=== PATIENT | male | born 1960 | race Two or more races ===

== ENCOUNTER 2022-07-19 21:58 | Emergency (ER) | payer MEDICAID, OTHER ==
[~2022-07-19] VITALS: Ht 170.2 cm; Wt 72.7 kg
[2022-07-19] MEDS ORDERED: ACCU-CHEK COMFORT CURVE STRIP VI ONE (22:30)
[2022-07-19 23:02] LABS: Basophils # (auto) 0.1 10 ^3/uL (0-0.2); Basophils % (auto) 0.7 % (0.0-2.0); Eosinophils # (auto) 0.1 10 ^3/uL (0-0.8); Eosinophils % (auto) 1.6 % (0.0-7.0); Hematocrit 39.6 % (41.0-53.0); Hemoglobin 13.2 g/dL (13.5-17.5); Lymphocytes % (auto) 25.2 % (10.0-50.0); Mean Corpuscular Hemoglobin 30.2 pg (28.0-32.0); Mean Corpuscular Hgb Conc. 33.3 g/dL (32.0-36.0); Mean Corpuscular Volume 90.7 fL (80.0-100.0); Monocytes # (auto) 0.6 10 ^3/uL (0-1.3); Neutrophils # (auto) 5.2 10 ^3/uL (1.6-8.6); Neutrophils % (auto) 65.5 % (37.0-80.0); Nucleated Red Blood Cells % 0.1 %; Red Blood Cells 4.37 10^6/uL (4.5-5.90); Red Cell Distribution Width 14.8 % (11.8-14.3); White Blood Cell 7.9 10^3/uL (4.4-10.8)
[2022-07-19 23:10] LABS: Albumin 3.3 g/dL (3.4-5.0); BUN/Creatinine Ratio 11.1 (10.0-20.0); Calcium 8.3 mg/dL (8.5-10.1); Potassium 3.9 mmol/L (3.5-5.1); Salicylate < 1.7 mg/dL (2.8-20.0)
[2022-07-19 23:12] LABS: Acetaminophen < 2.0 ug/mL (10-30)
[2022-07-19 23:13] LABS: Bilirubin, Total 0.4 mg/dL (0.2-1.0); Total Protein 6.4 g/dL (6.4-8.2)
[2022-07-20 08:40] LABS: Urine Bacteria NONE SEEN /hpf (None Seen); Urine Blood 1+ /uL (Negative); Urine Specific Gravity 1.009 (1.001-1.035); Urine WBC <1 /hpf (0 - 3)
[2022-07-20 08:48] LABS: Amphetamine Screen, Urine NEGATIVE (NEGATIVE); Barbiturate Scree,Urine NEGATIVE (NEGATIVE); Benzodiazephine Screen, Urine NEGATIVE (NEGATIVE); Cocaine Screen, Urine NEGATIVE (NEGATIVE); Phencyclidine Screen, Urine NEGATIVE (NEGATIVE)
[2022-07-20 08:55] LABS: Cannabinoid Screen, Urine POSITIVE (NEGATIVE); Opiate Scree,Urine NEGATIVE (NEGATIVE)
[2022-07-20 12:45] VITALS: BP 119/87
== END 2022-07-20 14:14 | disposition home or self-care (01) ==
LOC: EDBD 21:58 → ER 21:58
DX: T65.92XA Toxic effect of unspecified substance, intentional self-harm, initial encounter (principal); F41.9 Anxiety disorder, unspecified; D64.9 Anemia, unspecified; R42 Dizziness and giddiness; Y92.89 Other specified places as the place of occurrence of the external cause
CPT/HCPCS: 36415; 80053; 80307; 80320; 80329; 81001; 85025; 93005

== ENCOUNTER 2022-08-18 15:57 | Emergency (ER) | payer MEDICAID, OTHER ==
[~2022-08-18] VITALS: Ht 162.6 cm; Wt 55.5 kg
[2022-08-18 16:04] VITALS: BP 104/72
[2022-08-18] MEDS ORDERED: NAP500T PO (16:58)
[2022-08-18] MEDS ORDERED: KETOROLAC TROMETH 60MG/2ML VIAL IM ONE (17:00)
[2022-08-18] MEDS ORDERED: DexAMETHasone SOD PHOS 10MG/1ML VIAL INJ IM ONE (17:00)
== END 2022-08-19 00:50 | disposition home or self-care (01) ==
LOC: ER 15:57
DX: M19.021 Primary osteoarthritis, right elbow (principal); M25.521 Pain in right elbow; M54.2 Cervicalgia
CPT/HCPCS: 73080

== ENCOUNTER 2023-01-26 13:30 | Inpatient (IN) | payer MEDICAID, OTHER ==
[~2023-01-26] VITALS: Ht 172.7 cm; Wt 72.7 kg
[~2023-01-26 13:30] MED LIST: NAP500T PO
[2023-01-26 14:49] LABS: Basophils # (auto) 0.1 10 ^3/uL (0-0.2); Eosinophils # (auto) 0.1 10 ^3/uL (0-0.8); Eosinophils % (auto) 0.9 % (0.0-7.0); Hematocrit 39.5 % (41.0-53.0); Hemoglobin 13.3 g/dL (13.5-17.5); Lymphocytes # (auto) 1.3 10 ^3/uL (0.4-5.4); Lymphocytes % (auto) 18.3 % (10.0-50.0); Mean Corpuscular Hemoglobin 30.2 pg (28.0-32.0); Mean Corpuscular Hgb Conc. 33.8 g/dL (32.0-36.0); Mean Corpuscular Volume 89.4 fL (80.0-100.0); Monocytes # (auto) 0.5 10 ^3/uL (0-1.3); Monocytes % (auto) 7.7 % (0.0-12.0); Neutrophils % (auto) 72.1 % (37.0-80.0); Red Blood Cells 4.42 10^6/uL (4.5-5.90); Red Cell Distribution Width 14.2 % (11.8-14.3)
[2023-01-26 15:17] LABS: Alanine Aminotransferase 33 U/L (7-40); Albumin 4.2 g/dL (3.2-4.8); Alkaline Phosphatase 67 U/L (46-116); Anion Gap 6 (5-15); Aspartate Aminotransferase 24 U/L (13-40); BUN/Creatinine Ratio 8.1 (10.0-20.0); Bilirubin, Total 0.4 mg/dL (0.2-1.0); Blood Urea Nitrogen 9 mg/dL (9-23); Carbon Dioxide 27 mmol/L (20-30); Chloride 106 mmol/L (98-107); Glucose 92 mg/dL (74-106); Potassium 3.8 mmol/L (3.5-5.1); Sodium 139 mmol/L (136-145); Total Protein 6.7 g/dL (5.7-8.2)
[2023-01-26] MEDS ORDERED: HYDROcodone-ACET 10/325MG TAB PO ONE (20:30)
[2023-01-26] MEDS ORDERED: ACETAMINOPHEN 325 MG TAB PO PRN (22:30)
[2023-01-26] MEDS ORDERED: DOCUSATE SOD 100 MG CAP PO PRN (22:30)
[2023-01-26] MEDS ORDERED: ONDANSETRON HCL 4 MG/2 ML VIAL IV PRN (22:30)
[2023-01-26] MEDS ORDERED: SODIUM CHLORIDE 0.9% 1,000 ML IV SCH (22:30)
[2023-01-27] VITALS (8 sets, daily range): BP systolic 105–138; BP diastolic 65–75; PULSE 52–77; RESP 16–18; TEMP 36.8; O2SAT 95–99
[2023-01-27] MEDS ORDERED: MORPHINE SULFATE INJ 2 MG/ml SYRG IV PRN (00:15)
[2023-01-27] MEDS ORDERED: NITROGLYCERIN 0.4 MG SL TAB SL PRN (00:15)
[2023-01-27] MEDS: HYDROcodone-ACET 10/325MG TAB PO ONE ×2 (01:27→02:13)
[2023-01-27 07:17] LABS: Basophils # (auto) 0.1 10 ^3/uL (0-0.2); Basophils % (auto) 0.9 % (0.0-2.0); Eosinophils # (auto) 0.1 10 ^3/uL (0-0.8); Hematocrit 40.9 % (41.0-53.0); Hemoglobin 13.7 g/dL (13.5-17.5); Lymphocytes # (auto) 2.1 10 ^3/uL (0.4-5.4); Mean Corpuscular Hgb Conc. 33.5 g/dL (32.0-36.0); Mean Corpuscular Volume 89.7 fL (80.0-100.0); Monocytes # (auto) 0.7 10 ^3/uL (0-1.3); Monocytes % (auto) 8.3 % (0.0-12.0); Neutrophils # (auto) 5.7 10 ^3/uL (1.6-8.6); Neutrophils % (auto) 65.8 % (37.0-80.0); Nucleated Red Blood Cells % 0.2 %; Red Blood Cells 4.56 10^6/uL (4.5-5.90); Red Cell Distribution Width 14.3 % (11.8-14.3); White Blood Cell 8.7 10^3/uL (4.4-10.8)
[2023-01-27 07:39] LABS: Alanine Aminotransferase 30 U/L (7-40); Albumin 4.5 g/dL (3.2-4.8); Alkaline Phosphatase 65 U/L (46-116); Anion Gap 7 (5-15); Aspartate Aminotransferase 27 U/L (13-40); BUN/Creatinine Ratio 5.9 (10.0-20.0); Bilirubin, Total 0.6 mg/dL (0.2-1.0); Blood Urea Nitrogen 7 mg/dL (9-23); Calcium 9.2 mg/dL (8.5-10.1); Carbon Dioxide 25 mmol/L (20-30); Chloride 106 mmol/L (98-107); Glucose 99 mg/dL (74-106); Potassium 4.2 mmol/L (3.5-5.1); Sodium 138 mmol/L (136-145); Total Protein 7.2 g/dL (5.7-8.2)
[2023-01-27] MEDS: ASPirin 81 mg TAB PO SCH (10:18)
[2023-01-27] MEDS: HYDROcodone-ACET 5/325MG TAB PO PRN ×2 (15:11→19:35)
[2023-01-28] VITALS (7 sets, daily range): BP systolic 103–148; BP diastolic 66–99; PULSE 55–73; RESP 17–20; TEMP 97.4–99.4; O2SAT 95–100
[2023-01-28] MEDS: HYDROcodone-ACET 5/325MG TAB PO PRN ×4 (01:51→21:54)
[2023-01-28] MEDS: ASPirin 81 mg TAB PO SCH (08:19)
[2023-01-29 05:00] VITALS: BP 108/74; PULSE 67; RESP 18; TEMP 97.7; O2SAT 100
[2023-01-29] MEDS ORDERED: BACL10TA PO (05:48)
[2023-01-29] MEDS ORDERED: BRIN1SUS7 EACHEYE (05:48)
[2023-01-29] MEDS ORDERED: TIMO0.5S32 EACHEYE (05:48)
[2023-01-29] MEDS ORDERED: LATA0.008 EACHEYE (05:48)
[2023-01-29] MEDS ORDERED: BRIM0.2S17 EACHEYE (05:48)
[2023-01-29] MEDS ORDERED: CITA10TA5 PO (05:48)
[2023-01-29] MEDS ORDERED: FER325T PO (05:48)
[2023-01-29] MEDS ORDERED: IBUP1TAB5 PO (05:48)
[2023-01-29] MEDS ORDERED: HYDR-4798 PO (05:49)
[2023-01-29 08:00] VITALS: PULSE 77
[2023-01-29] MEDS: ASPirin 81 mg TAB PO SCH (08:35)
[2023-01-29] MEDS: HYDROcodone-ACET 5/325MG TAB PO PRN (08:36)
[2023-01-29 09:00] VITALS: BP 105/72; PULSE 76; RESP 17; TEMP 97.9; O2SAT 97
[2023-01-29] MEDS ORDERED: TIMOLOL MAL 0.5% OPTH(EYE) SOL 5ML EACHEYE SCH (10:00)
[2023-01-29] MEDS ORDERED: BRIMONIDINE 0.2% OPTH Soln 5ml EACHEYE SCH (10:00)
[2023-01-29] MEDS ORDERED: LATANOPROST EACHEYE SCH (10:00)
[2023-01-29] MEDS ORDERED: PATIENTS OWN MEDICATION EACHEYE SCH (10:00)
== END 2023-01-29 14:53 | disposition home or self-care (01) | DRG 48 ==
LOC: EDBD 13:30 → ER 13:30 → TELE 01-27 00:15 → TELE-WESTW 01-27 08:07
PROVIDERS: ADMIT Nurse Practitioner Family; ATTEND Internal Medicine Geriatric Medicine
DX: G90.8 Other disorders of autonomic nervous system (principal); S09.90XA Unspecified injury of head, initial encounter; F12.90 Cannabis use, unspecified, uncomplicated; F17.210 Nicotine dependence, cigarettes, uncomplicated; G89.29 Other chronic pain; M54.9 Dorsalgia, unspecified; W17.89XA Other fall from one level to another, initial encounter; Y93.89 Activity, other specified; Y92.521 Bus station as the place of occurrence of the external cause; Y99.8 Other external cause status
CPT/HCPCS: 36415; 70450; 70551; 71101; 71260; 72125; 74177; 80053; 84484; 85025; 93005; 93306; 93886; G0378

== ENCOUNTER 2024-06-23 09:09 | Emergency (ER) | payer MEDICAID, OTHER ==
[~2024-06-23] VITALS: Ht 162.6 cm; Wt 50.5 kg
[~2024-06-23 09:09] MED LIST changes: +ASPI-325 PO; +BACL10TA PO; +BRIM0.2S17 EACHEYE; +BRIN1SUS7 EACHEYE; +CITA10TA5 PO; +FAMO20TA10 PO; +FER325T PO; +FLUO-125 PO; +HYDR-4798 PO; +IBUP1TAB5 PO; +LATA0.008 EACHEYE; -NAP500T PO; +QUET50TA PO; +TIMO0.5S32 EACHEYE
--- NOTE | 2024-06-23 10:07 | ED.PDOC ---
History of Present Illness HPI Comments 63 year old male presents to the ED with a chief complaint of generalized weakness onset 2 days. Patient states he has been experiencing generalized weakness the past 2 days as well as dizziness, abdominal pain, sweats. Patient has not taken any medication to improve symptoms. PMHx seizures. Denies chest pain, shortness of breath, fevers, nausea, vomiting, diarrhea, constipation, fall, injury. No other symptoms or modifying factors present at this time. Chief Complaint: Flu like Time Seen by MD: 09:46 Primary Care Provider: JAIME Mendiola Notes: Medications, Allergies Allergies: Coded Allergies: NO KNOWN ALLERGIES (Unverified , 07/19/22) Home Meds Active Scripts Aspirin (Aspirin Low Dose) 81 Mg Tab, 81 MG PO DAILY for 30 Days, #30 TAB Prov:KELLEE CHACON RESIDENT 12/17/23 Reported Medications Quetiapine Fumerate (Seroquel) 50 Mg Tab, 1 TAB PO HS for 30 Days, #30 12/17/23 Fluoxetine Hcl (Fluoxetine Hcl) 20 Mg Cap, 1 TAB PO DAILY for 30 Days, #30 12/17/23 Famotidine (PEPCID TABLET) 20 Mg Tb, 1 TAB PO BID for 30 Days, #60 12/17/23 Hydrocodone-Acetaminophen (Hydrocodone Bitartrate/AC 10-325 mg) 1 Tab Tab, 1 TAB PO TID for 30 Days, #90 01/29/23 Citalopram Hydrobromide (Citalopram Hydrobromide) 10 Mg Tab, 1 TAB PO DAILY 01/29/23 Timolol Maleate (Ophth) (Timolol Maleate) 0.5 % Nora, EACHEYE 01/29/23 Brimonidine Tartrate (Brimonidine Tartrate) 0.2 % Nora, 1 DROP EACHEYE TID for 90 Days, #30 01/29/23 Latanoprost (LATANOPROST) 0.005 % Nora, 1 DROP EACHEYE HS for 90 Days, #7.5 01/29/23 Brinzolamide-Brimonidine Tartr (SIMBRINZA) 1 Ml Vielka, 1 DROP EACHEYE TID 01/29/23 Ibuprofen Micronized (Ibuprofen) 600 Mg Tab, 2 TAB PO BID 01/29/23 Baclofen (Baclofen) 10 Mg Tab, 1 TAB PO TID 01/29/23 Ferrous Sulfate (Ferrous Sulfate) 325 Mg Tab, 1 TAB PO BID 01/29/23 Information Source: Patient Mode of Arrival: Ambulatory Severity: Moderate Timing: Days Duration: Since onset Prehospital treatment: None Past Medical History PAST MEDICAL HISTORY: Seizures Surgical History: Hernia Repair Family History Family History: Unknown Social History Smoker: Cigarettes Alcohol: Occasionally Drugs: Marijuana Lives In: Home Constitutional: reports: sweats, weakness; denies: chills, diaphoresis, fatigue, fever, malaise, others EENTM: denies: blurred vision, double vision, ear bleeding, ear discharge, ear drainage, ear pain, ear ringing, eye pain, eye redness, hearing loss, mouth pain, mouth swelling, nasal discharge, nose bleeding, nose congestion, nose pain, photophobia, tearing, throat pain, throat swelling, voice changes, others Respiratory: denies: cough, hemoptysis, orthopnea, SOB at rest, shortness of breath, SOB with excertion, stridor, wheezing, others Cardiovascular: denies: chest pain, dizzy spells, diaphoresis, Dyspnea on exertion, edema, irregular heart beat, left arm pain, lightheadedness, palpitations, PND, syncope, others Gastrointestinal: reports: abdominal pain; denies: abdomen distended, blood streaked bowels, constipated, diarrhea, dysphagia, difficulty swallowing, h ematemesis, melena, nausea, poor appetite, poor fluid intake, rectal bleeding, rectal pain, vomiting, others Genitourinary: denies: burning, dysuria, flank pain, frequency, hematuria, incontinence, penile discharge, penile sore, pain, testicle pain, testicle swelling, urgency, others Neurological: reports: dizziness, weakness; denies: fainting, headache, left sided numbness, left sided weakness, numbness, paresthesia, pre-existing deficit, right sided numbness, right sided weakness, seizure, speech problems, tingling, tremors, others Musculoskeletal: denies: back pain, gout, joint pain, joint swelling, muscle pain, muscle stiffness, neck pain, others Integumetry: denies: bruises, change in color, change in hair/nails, dryness, laceration, lesions, lumps, rash, wounds, others Allergic/Immunocompromised: denies: Difficulty Healing, Frequent Infections, Hives, Itching, others Hematologic/Lymphatic: denies: anemia, blood clots, easy bleeding, easy bruising, swollen glands, others Endocrine: denies: excessive hunger, excessive sweating, excessive thirst, excessive urination, flushing, intolerance to cold, intolerance to heat, unexplained weight gain, unexplained weight loss, others Psychiatric: denies: anxiety, bipolar disorder, depression, hopeless, panic disorder, schizophrenia, sleepless, suicidal, others All Other Systems: Reviewed and Negative Physical Exam General Appearance: Moderate Distress, Normal HEENT: Normal ENT Inspection, Pharynx Normal, TMs Normal Neck: Full Range of Motion, Non-Tender, Normal, Normal Inspection Respiratory: Chest Non-Tender, Lungs Clear, No Accessory Muscle Use, No Respiratory Distress, Normal Breath Sounds Cardiovascular: No Edema, No JVD, No Murmur, No Gallop, Normal Peripheral Pulses, Regular Rate/Rhythm Breast Exam: Deferred Gastrointestinal: No Organomegaly, Non Tender, No Pulsatile Mass, Normal Bowel Sounds, Soft Genitalia: Deferred Pelvic: Deferred Rectal: Deferred Extremities: No calf tenderness, Normal capillary refill, Normal inspection, Normal range of motion, Non-tender, No pedal edema Musculoskeletal : Apperance: Normal Neurologic: Alert, lead atg developer II-XII nml as Tested, No Motor Deficits, Normal Affect, Normal Mood, No Sensory Deficits Cerebellar Function: Normal Reflexes: Normal Skin: Dry, Normal Color, Warm Peripheral Pulses: 3+ Radial (R), 3+ Radial (L) Lymphatic: No Adenopathy Was a procedure done? Was a procedure done?: No Differential Dx Considerations may include: Anemia Electrolyte imbalance X-Ray, Labs, Meds, VS Vital Signs Date Time Temp Pulse Resp B/P (MAP) Pulse Ox O2 Delivery O2 Flow Rate FiO2 06/23/24 10:27 53 96 Room Air* 0 21 06/23/24 10:22 98.4 53 19 124/70 (88) 96 98.4 06/23/24 10:21 98.8 52 19 124/70 (88) 96 98.8 06/23/24 09:44 97.9 59 18 107/76 (86) 96 97.9 06/23/24 09:44 59 18 96 Room Air 06/23/24 09:42 Room Air* 0 21 3/24/25 09:15 98.5 69 18 137/86 (103) 100 98.5 Lab Test 06/23/24 10:10 Range/Units White Blood Count 4.7 4.4-10.8 10^3/uL Red Blood Count 4.74 4.5-5.90 10^6/uL Hemoglobin 14.4 13.5-17.5 g/dL Hematocrit 42.7 41.0-53.0 % Mean Corpuscular Volume 90.2 80.0-100.0 fL Mean Corpuscular Hemoglobin 30.3 28.0-32.0 pg Mean Corpuscular Hemoglobin Concent 33.6 32.0-36.0 g/dL Red Cell Distribution Width 14.0 11.8-14.3 % Platelet Count 170 140-450 10^3/uL Mean Platelet Volume 9.2 6.9-10.8 fL Neutrophils (%) (Auto) 54.4 37.0-80.0 % Lymphocytes (%) (Auto) 30.1 10.0-50.0 % Monocytes (%) (Auto) 13.9 H 0.0-12.0 % Eosinophils (%) (Auto) 0.3 0.0-7.0 % Basophils (%) (Auto) 1.3 0.0-2.0 % Neutrophils # (Auto) 2.6 1.6-8.6 10 ^3/uL Lymphocytes # (Auto) 1.4 0.4-5.4 10 ^3/uL Monocytes # (Auto) 0.7 0-1.3 10 ^3/uL Eosinophils # (Auto) 0 0-0.8 10 ^3/uL Basophils # (Auto) 0.1 0-0.2 10 ^3/uL Nucleated Red Blood Cells 0.2 % Sodium Level 137 136-145 mmol/L Potassium Level 4.1 3.5-5.1 mmol/L Chloride Level 105 98-107 mmol/L Carbon Dioxide Level 25 20-31 mmol/L Anion Gap 7 5-15 Blood Urea Nitrogen 9 9-23 mg/dL Creatinine 1.08 0.700-1.30 mg/dL Glomerular Filtration Rate Calc 78 >90 mL/min BUN/Creatinine Ratio 8.3 L 10.0-20.0 Serum Glucose 111 H 74-106 mg/dL Calcium Level 9.3 8.7-10.4 mg/dL Current Medications Medications (Trade) Dose Ordered Sig/Kami Route Start Time Stop Time Status Last Admin Sodium Chloride 1,000 ml @ 1,000 mls/hr Q1H ONCE IV 06/23/24 10:00 06/23/24 10:59 DC 06/23/24 10:[address] [address] Ph: [phone] DIAGNOSTIC IMAGING Diagnostic Imaging Report : [id number] Signed PATIENT: CAROL HANKINS RACCT: [id number] UNIT: [id number] : 1960 LOC: ER ROOM / BED: / AGE / SEX: 63 / M ADM STATUS: REG ER SERVICE 0949 ORDERING PHYSICIAN: KEREN WILEY MD PROCEDURE(s): CXRP - CHEST PORTABLE REASON: sob ORDER NUMBER(s): [id number], ACCESSION NUMBER(s): [id number] CHEST RADIOGRAPH Indication: sob Technique: Single frontal view of the chest was obtained Comparison: None FINDINGS: Lines and Tubes: None Lungs: No focal consolidation. Pleura: No effusion. No pneumothorax. Cardiomediastinal contours: Unremarkable Bones: No acute osseous abnormality. IMPRESSION: 1. No acute cardiopulmonary disease. ATED BY: KAREN VELOZ MD DICTATED DATE/TIME: 06/23/24 1009 SIGNED BY: KAREN VELOZ MD SIGNED DATE/TIME: 06/23/24 1009 CC: Patient alert. Complaining of being feverish. Vitals stable. Answering all questions. Chest x-ray reviewed does not show any acute process. Abdomen is soft nontender. No sign of distress. Possible upper respiratory tract infection. Possible sinusitis. Hemoglobin within normal limits. Saturation pristine on room air. Heart rate within normal limits. No leg swelling. Denies chest pain. Was given prescription of Augmentin for sinusitis. Explained to the patient. Was told to follow up with his primary care physician. Was told to come back if there is any problem. Time of 1ST Reevaluation: 10:16 Reevaluation 1ST: Improved Time of 2ND Reevaluation: 11:43 Reevaluation 2ND: Improved Patient Education/Counseling: Diagnosis, Treatment, Prognosis Family Education/Counseling: No Family Present Additional Information The following tests were ordered, and results were reviewed by me: CBC, XY CHEST, BMP I reviewed and agreed with the following test results read by other providers: XY CHEST I discussed treatment and results with medical personnel and: patient Comprehensive systems review obtained and negative except for what is stated in the HPI. Departure 1 Departure Time of Disposition: 11:45 Impression: Primary Impression: Sinusitis Qualified Codes: J01.10 - Acute frontal sinusitis, unspecified Disposition: HOME / SELF CARE / HOMELESS Condition: Good e-Prescriptions Amoxicillin & Pot Clavulanate (Augmentin) 500 Mg Tab 1 TAB PO BID for 7 Days, #14 TAB Prov: KEREN WILEY MD 06/23/24 Discharged With: Self Critical Care Note Critical Care Time?: No Stability Stability form required: No Heart Score Heart Score: Heart Score Response (Comments) Value History N/A 0 EKG N/A 0 Age N/A 0 Risk Factors N/A 0 Troponin N/A 0 Total 0 I personally scribed for KEREN WILEY MD ([email or web address]) on 06/23/24 at 10:07. Electronically submitted by Roxanna Flores ([email or web address]). I personally scribed for KEREN WILEY MD ([email or web address]) on 06/23/24 at 10:41. Electronically submitted by Roxanna Flores ([email or web address]). KEREN WILEY MD Jun 23, 2024 10:07
--- NOTE | 2024-06-23 10:12 | DVH ---
CHEST RADIOGRAPH Indication: sob Technique: Single frontal view of the chest was obtained Comparison: None FINDINGS: Lines and Tubes: None Lungs: No focal consolidation. Pleura: No effusion. No pneumothorax. Cardiomediastinal contours: Unremarkable Bones: No acute osseous abnormality. IMPRESSION: 1. No acute cardiopulmonary disease.
[2024-06-23 10:22] VITALS: BP 124/70; RESP 19; TEMP 98.4
[2024-06-23 10:27] VITALS: PULSE 53; O2SAT 96
[2024-06-23 10:30] LABS: Basophils # (auto) 0.1 10 ^3/uL (0-0.2); Basophils % (auto) 1.3 % (0.0-2.0); Eosinophils # (auto) 0 10 ^3/uL (0-0.8); Eosinophils % (auto) 0.3 % (0.0-7.0); Hematocrit 42.7 % (41.0-53.0); Hemoglobin 14.4 g/dL (13.5-17.5); Lymphocytes # (auto) 1.4 10 ^3/uL (0.4-5.4); Lymphocytes % (auto) 30.1 % (10.0-50.0); Mean Corpuscular Hemoglobin 30.3 pg (28.0-32.0); Mean Corpuscular Hgb Conc. 33.6 g/dL (32.0-36.0); Mean Corpuscular Volume 90.2 fL (80.0-100.0); Monocytes # (auto) 0.7 10 ^3/uL (0-1.3); Monocytes % (auto) 13.9 % (0.0-12.0); Neutrophils # (auto) 2.6 10 ^3/uL (1.6-8.6); Neutrophils % (auto) 54.4 % (37.0-80.0); Nucleated Red Blood Cells % 0.2 %; Platelet Count (auto) 170 10^3/uL (140-450); Red Blood Cells 4.74 10^6/uL (4.5-5.90); White Blood Cell 4.7 10^3/uL (4.4-10.8)
[2024-06-23] MEDS: SODIUM CHLORIDE 0.9% 1,000 ML IV ONE (10:30)
[2024-06-23 10:43] LABS: Chloride 105 mmol/L (98-107); Potassium 4.1 mmol/L (3.5-5.1); Sodium 137 mmol/L (136-145)
[2024-06-23 10:44] LABS: Anion Gap 7 (5-15); Calcium 9.3 mg/dL (8.7-10.4); Carbon Dioxide 25 mmol/L (20-31)
[2024-06-23 10:49] LABS: BUN/Creatinine Ratio 8.3 (10.0-20.0); Blood Urea Nitrogen 9 mg/dL (9-23)
[2024-06-23 10:58] LABS: Glucose 111 mg/dL (74-106)
[2024-06-23] MEDS ORDERED: AMOX500T86 PO (11:46)
== END 2024-06-23 11:57 | disposition home or self-care (01) ==
LOC: ER 09:09
DX: J32.9 Chronic sinusitis, unspecified (principal); R10.9 Unspecified abdominal pain; R42 Dizziness and giddiness; F17.210 Nicotine dependence, cigarettes, uncomplicated; Z79.82 Long term (current) use of aspirin; Z79.899 Other long term (current) drug therapy; Z98.890 Other specified postprocedural states
CPT/HCPCS: 36415; 71045; 80048; 85025; 96360; 99284; J7030

== ENCOUNTER 2024-07-26 09:40 | Emergency (ER) | payer OTHER ==
[~2024-07-26] VITALS: Ht 162.6 cm; Wt 49.5 kg
[~2024-07-26 09:40] MED LIST changes: +AMOX500T86 PO
[2024-07-26 10:03] VITALS: BP 157/77; PULSE 89; RESP 17; TEMP 98.6; O2SAT 98
--- NOTE | 2024-07-26 10:27 | ED.PDOC ---
Musculoskeletal HPI Comments A 63 YEAR OLD FEMALE PRESENTS TO THE ED WITH COMPLAINT OF RIGHT FOOT PAIN. PATIENT STATES HE HAS BEEN EXPERIENCING RIGHT FOOT PAIN OFF AND ON FOR THE PAST SEVERAL YEARS DUE TO A PREVIOUS INJURY TO THE AREA, BUT NOTES HIS PAIN HAS BEEN WORSE OVER THE LAST 3 MONTHS. HE TAKES NORCO PAIN MEDICATION AT HOME BUT HE RAN OUT OF MESI. PATIENT DENIES FEVER, CHILLS, SHORTNESS OF BREATH, CHEST PAIN, ABDOMINAL PAIN, NAUSEA, VOMITING, HEADACHE, OR OTHER COMPLAINTS. NO OTHER SYMPTOMS OR MODIFYING FACTORS AT THIS TIME. PATIENT IS ALERT, ORIENTED X 4, AND HAS STEADY GAIT. Chief Complaint: Lower Extremity Time Seen by MD: 09:44 Primary Care Provider: JAIME Mendiola Notes: Nurses Notes, Medications, Allergies Allergies: Coded Allergies: NO KNOWN ALLERGIES (Unverified , 07/19/22) Home Meds Active Scripts Amoxicillin & Pot Clavulanate (Augmentin) 500 Mg Tab, 1 TAB PO BID for 7 Days, #14 TAB Prov:KEREN WILEY MD 06/23/24 Aspirin (Aspirin Low Dose) 81 Mg Tab, 81 MG PO DAILY for 30 Days, #30 TAB Prov:KELLEE CHACON RESIDENT 12/17/23 Reported Medications Quetiapine Fumerate (Seroquel) 50 Mg Tab, 1 TAB PO HS for 30 Days, #30 12/17/23 Fluoxetine Hcl (Fluoxetine Hcl) 20 Mg Cap, 1 TAB PO DAILY for 30 Days, #30 12/17/23 Famotidine (PEPCID TABLET) 20 Mg Tb, 1 TAB PO BID for 30 Days, #60 12/17/23 Hydrocodone-Acetaminophen (Hydrocodone Bitartrate/AC 10-325 mg) 1 Tab Tab, 1 TAB PO TID for 30 Days, #90 01/29/23 Citalopram Hydrobromide (Citalopram Hydrobromide) 10 Mg Tab, 1 TAB PO DAILY 01/29/23 Timolol Maleate (Ophth) (Timolol Maleate) 0.5 % Nora, EACHEYE 01/29/23 Brimonidine Tartrate (Brimonidine Tartrate) 0.2 % Nora, 1 DROP EACHEYE TID for 90 Days, #30 01/29/23 Latanoprost (LATANOPROST) 0.005 % Nora, 1 DROP EACHEYE HS for 90 Days, #7.5 01/29/23 Brinzolamide-Brimonidine Tartr (SIMBRINZA) 1 Ml Vielka, 1 DROP EACHEYE TID 01/29/23 Ibuprofen Micronized (Ibuprofen) 600 Mg Tab, 2 TAB PO BID 01/29/23 Baclofen (Baclofen) 10 Mg Tab, 1 TAB PO TID 01/29/23 Ferrous Sulfate (Ferrous Sulfate) 325 Mg Tab, 1 TAB PO BID 01/29/23 Information Source: Patient Mode of Arrival: Ambulatory Location: Right Extremity Location: Foot Timing: Days Prehospital treatment: None Severity: Moderate Able to Move Extremity: Yes Bear Weight: Fully Pain: Moderate Mechanism: No Trauma, Spontaneous Circumstances: Spontaneous Onset of Symptoms: Spontaneous Symptoms: Pain DVT Risk Factors: NONE Last Tetanus: Unknown Associated signs and symptoms: Foot pain (RIGHT 2ND TOE ) Past Medical History PAST MEDICAL HISTORY: Seizures Surgical History: Hernia Repair Family History Family History: Reviewed,noncontributory to illness Social History Smoker: Cigarettes Alcohol: Occasionally Drugs: Marijuana Lives In: Home Constitutional: denies: chills, diaphoresis, fatigue, fever, malaise, sweats, weakness, others EENTM: denies: blurred vision, double vision, ear bleeding, ear discharge, ear drainage, ear pain, ear ringing, eye pain, eye redness, hearing loss, mouth pain, mouth swelling, nasal discharge, nose bleeding, nose congestion, nose pain, photophobia, tearing, throat pain, throat swelling, voice changes, others Respiratory: denies: cough, hemoptysis, orthopnea, SOB at rest, shortness of breath, SOB with excertion, stridor, wheezing, others Cardiovascular: denies: chest pain, dizzy spells, diaphoresis, Dyspnea on exertion, edema, irregular heart beat, left arm pain, lightheadedness, palpitations, PND, syncope, others Gastrointestinal: denies: abdomen distended, abdominal pain, blood streaked bowels, constipated, diarrhea, dysphagia, difficulty swallowing, hematemesis, melena, nausea, poor appetite, poor fluid intake, rectal bleeding, rectal pain, vomiting, others Genitourinary: denies: burning, dysuria, flank pain, frequency, hematuria, incontinence, penile discharge, penile sore, pain, testicle pain, testicle swelling, urgency, others Neurological: denies: dizziness, fainting, headache, left sided numbness, left sided weakness, numbness, paresthesia, pre-existing deficit, right sided numbness, right sided weakness, seizure, speech problems, tingling, tremors, weakness, others Musculoskeletal: reports: joint pain, others (RIGHT FOOT PAIN); denies: back pain, gout, joint swelling, muscle pain, muscle stiffness, neck pain Integumetry: denies: bruises, change in color, change in hair/nails, dryness, laceration, lesions, lumps, rash, wounds, others Allergic/Immunocompromised: denies: Difficulty Healing, Frequent Infections, Hives, Itching, others Hematologic/Lymphatic: denies: anemia, blood clots, easy bleeding, easy bruising, swollen glands, others Endocrine: denies: excessive hunger, excessive sweating, excessive thirst, excessive urination, flushing, intolerance to cold, intolerance to heat, unexplained weight gain, unexplained weight loss, others Psychiatric: denies: anxiety, bipolar disorder, depression, hopeless, panic disorder, schizophrenia, sleepless, suicidal, others All Other Systems: Reviewed and Negative Physical Exam General Appearance: No Apparent Distress, Normal HEENT: Normal ENT Inspection, PERRL/EOMI, Pharynx Normal, TMs Normal Neck: Full Range of Motion, Non-Tender, Normal, Normal Inspection Respiratory: Chest Non-Tender, Lungs Clear, No Accessory Muscle Use, No Respiratory Distress, Normal Breath Sounds Cardiovascular: No Edema, No JVD, No Murmur, No Gallop, Normal Peripheral Pulses, Regular Rate/Rhythm Breast Exam: Deferred Gastrointestinal: No Organomegaly, Non Tender, No Pulsatile Mass, Normal Bowel Sounds, Soft Genitalia: Deferred Pelvic: Deferred Rectal: Deferred Extremities: No calf tenderness, Normal capillary refill, Normal inspection, Normal range of motion, No pedal edema, Tender (ON RIGHT 2ND TOE, NO BONY TENDERNESS, SWELLING AND DEFORMITY. ) Musculoskeletal : Apperance: Normal Neurologic: Alert, clinical resource coordinator II-XII nml as Tested, No Motor Deficits, Normal Affect, Normal Mood, No Sensory Deficits Cerebellar Function: Normal Reflexes: Normal Skin: Dry, Normal Color, Warm Peripheral Pulses: 2+ carotid (R), 2+ carotid (L), 2+ dorsalis pedis (R), 2+ dorsalis pedis (L) Lymphatic: No Adenopathy Was a procedure done? Was a procedure done?: No Differential Diagnosis EXT Differential Diagnosis: Fracture, Sprain, Dislocation, DJD, Contusion, Strain, Arthritis, Bursitis X-Ray, Labs, Meds, VS Vital Signs Date Time Temp Pulse Resp B/P (MAP) Pulse Ox O2 Delivery O2 Flow Rate FiO2 07/26/24 10:03 98.6 89 18 157/77 (103) 98 98.6 07/26/24 10:03 89 17 98 Room Air 07/26/24 09:48 98.0 94 18 164/79 (107) 98 98.0 Current Medications Medications (Trade) Dose Ordered Sig/Kami Route Start Time Stop Time Status Last Admin Acetaminophen/ Hydrocodone Bitart ([place] 5/325MG Tab) 1 tab ONCE ONCE PO 07/26/24 10:45 07/26/24 10:46 07/26/24 10:45 CLINICAL INFORMATION: Right foot pain for years. No known injury. TECHNIQUE: 3 views of the right foot were obtained. COMPARISON: None. FINDINGS: No acute fracture or dislocation. Hallux valgus deformity. Moderate arthritic changes of the 1st MTP joint with joint space narrowing and subchondral sclerosis. Mild lateral subluxation of the proximal phalanx of the 1st digit with respect to the 1st metatarsal base. Mild bunionette deformity of the 5th metatarsal with mild varus angulation of the 5th MTP joint. Adjacent sof t tissues are unremarkable. IMPRESSION: 1. No evidence of acute bony abnormality. 2. Nonacute findings as described above. ATED BY: AARON GANN DO DICTATED DATE/TIME: 07/26/24 1037 SIGNED BY: AARON GANN DO SIGNED DATE/TIME: 07/26/24 1037 CC: X-Ray, Labs, Meds, VS Comment EXTERNAL MEDICAL RECORDS REVIEWED: [NONE] INDEPENDENT HISTORIANS: [NONE] SOCIAL DETERMINANTS OF HEALTH: [NONE] LABS ORDERED: NONE REVIEWED AND INTERPRETED RESULTS: NONE IMAGING ORDERED: XR FOOT RT TREATMENTS ORDERED: NORCO 5/325 PO PROCEDURES PERFORMED: NONE CRITICAL CARE TIME: NONE I HAVE DISCUSSED THE PATIENT WITH THE ATTENDING PHYSICIAN DR. LOPEZ AND HE AGREES WITH THE PATIENT'S PLAN OF CARE AND DISPOSITION. BASED ON HISTORY OF PRESENT ILLNESS, AND PHYSICAL EXAM, PATIENT WILL BE DISCHARGED HOME. DISCUSSED PLAN FOR DISCHARGE HOME WITH RX []. MEDICATION WARNINGS GIVEN. SHARED DECISION MAKING: PATIENT INSTRUCTED TO FOLLOW UP WITH PRIMARY CARE PROVIDER IN 1-2 DAYS FOR RE-EVALUATION OF SYMPTOMS. PATIENT VERBALIZES UNDERSTANDING TO RETURN TO ED FOR NEW OR WORSENING SYMPTOMS OR IF FOLLOW UP WITH PCP CANNOT BE OBTAINED. PATIENT FEELS COMFORTABLE GOING HOME AT THIS TIME. ALL QUESTIONS ADDRESSED AT TIME OF DISCHARGE. Images Reviewed?: Images reviewed and evaluated by me Time of 1ST Reevaluation: 11:00 Reevaluation 1ST: Improved Patient Education/Counseling: Diagnosis, Treatment, Need For Follow Up Family Education/Counseling: Diagnosis, Treatment, Need For Follow Up Medical Screening: No EMC Exist At This Time Departure 1 Departure Time of Disposition: 11:00 Impression: Primary Impression: Degenerative joint disease of right foot Qualified Codes: M19.071 - Primary osteoarthritis, right ankle and foot Disposition: 01 HOME / SELF CARE / HOMELESS Condition: Stable Additional Instructions: FOLLOW-UP WITH PCP IN 1 TO 2 DAYS. TAKE MEDICATIONS PRESCRIBED. RETURN TO ED FOR ANY NEW OR WORSENING SYMPTOMS. Discharged With: Self Critical Care Note Critical Care Time?: No Stability Stability form required: No I personally scribed for BRADEN GLASS ([email or web address]) on 07/26/24 at 10:26. Electronically submitted by Herbie Brooks ([employer]). I personally scribed for BRADEN GLASS ([email or web address]) on 07/26/24 at 10:43. Electronically submitted by Herbie Brooks ([employer]). I personally scribed for BRADEN GLASS ([email or web address]) on 07/26/24 at 10:44. Electronically submitted by Herbie Brooks ([employer]). I personally scribed for BRADEN GLASS ([email or web address]) on 07/26/24 at 10:44. Electronically submitted by Herbie Brooks ([employer]). BRADEN GLASS Jul 26, 2024 10:26
--- NOTE | 2024-07-26 10:40 | DVH ---
CLINICAL INFORMATION: Right foot pain for years. No known injury. TECHNIQUE: 3 views of the right foot were obtained. COMPARISON: None. FINDINGS: No acute fracture or dislocation. Hallux valgus deformity. Moderate arthritic changes of th e 1st MTP joint with joint space narrowing and subchondral sclerosis. Mild lateral subluxation of the proximal phalanx of the 1st digit with respect to the 1st metatarsal base. Mild bunionette deformity of the 5th metatarsal with mild varus angulation of the 5th MTP joint. Adjacent soft tissues are unr emarkable. IMPRESSION: 1. No evidence of acute bony abnormality. 2. Nonacute findings as described above.
[2024-07-26] MEDS: HYDROcodone-ACET 5/325MG TAB PO ONE (10:45)
== END 2024-07-26 10:54 | disposition home or self-care (01) ==
LOC: ER 09:40
DX: M19.071 Primary osteoarthritis, right ankle and foot (principal); F17.210 Nicotine dependence, cigarettes, uncomplicated; F12.90 Cannabis use, unspecified, uncomplicated; Z98.890 Other specified postprocedural states; Z79.899 Other long term (current) drug therapy; Z79.82 Long term (current) use of aspirin
CPT/HCPCS: 73630

== ENCOUNTER 2024-07-29 07:30 | Emergency (ER) | payer OTHER ==
[~2024-07-29] VITALS: Ht 165.1 cm; Wt 57.7 kg
[2024-07-29 08:00] VITALS: BP 170/86; PULSE 62; RESP 16; TEMP 97.9; O2SAT 96
--- NOTE | 2024-07-29 08:33 | ED.PDOC ---
Eye-HPI HPI Comments 63M with PMHx of Sz and Glaucoma seen in the ER 2 days ago for right foot pain presents to the ER for pain/concern over a nodule to the left lower inner lip. Pt states on noticing a firm round nodule while brushing his teeth this AM. Denies any other complaints or concerns. Denies any fevers chills nausea vomiting diarrhea. Able to eat and drink in his usual state of health. Chief Complaint: Face pain Time Seen by MD: 08:15 Primary Care Provider: JAIME Mendiola Notes: Nurses Notes, Medications, Allergies Allergies: Coded Allergies: NO KNOWN ALLERGIES (Unverified , 07/19/22) Home Meds Active Scripts Ibuprofen Micronized (Ibuprofen) 600 Mg Tab, 600 MG PO TIDPRN PRN for 7 Days, #21 TAB 0 Refills Prov:SERGEY DENNIS POLITICAL CARTOONIST 07/29/24 Amoxicillin & Pot Clavulanate (Augmentin) 500 Mg Tab, 1 TAB PO BID for 7 Days, #14 TAB Prov:KEREN WILEY MD 06/23/24 Aspirin (Aspirin Low Dose) 81 Mg Tab, 81 MG PO DAILY for 30 Days, #30 TAB Prov:KELLEE CHACON 12/17/23 Reported Medications Quetiapine Fumerate (Seroquel) 50 Mg Tab, 1 TAB PO HS for 30 Days, #30 12/17/23 Fluoxetine Hcl (Fluoxetine Hcl) 20 Mg Cap, 1 TAB PO DAILY for 30 Days, #30 12/17/23 Famotidine (PEPCID TABLET) 20 Mg Tb, 1 TAB PO BID for 30 Days, #60 12/17/23 Hydrocodone-Acetaminophen (Hydrocodone Bitartrate/AC 10-325 mg) 1 Tab Tab, 1 TAB PO TID for 30 Days, #90 01/29/23 Citalopram Hydrobromide (Citalopram Hydrobromide) 10 Mg Tab, 1 TAB PO DAILY 01/29/23 Timolol Maleate (Ophth) (Timolol Maleate) 0.5 % Nora, EACHEYE 01/29/23 Brimonidine Tartrate (Brimonidine Tartrate) 0.2 % Nora, 1 DROP EACHEYE TID for 90 Days, #30 01/29/23 Latanoprost (LATANOPROST) 0.005 % Nora, 1 DROP EACHEYE HS for 90 Days, #7.5 01/29/23 Brinzolamide-Brimonidine Tartr (SIMBRINZA) 1 Ml Vielka, 1 DROP EACHEYE TID 01/29/23 Ibuprofen Micronized (Ibuprofen) 600 Mg Tab, 2 TAB PO BID 01/29/23 Baclofen (Baclofen) 10 Mg Tab, 1 TAB PO TID 01/29/23 Ferrous Sulfate (Ferrous Sulfate) 325 Mg Tab, 1 TAB PO BID 01/29/23 Information Source: Patient Mode of Arrival: Ambulatory Timing: Minutes Duration: Since onset, Minutes Prehospital treatment: None Quality: Pain Lids: Normal Conjunctiva: Normal Cornea: Normal Pupils: Normal EOM: Normal Fundus: Normal Slit lamp exam: Normal Anterior chamber: Normal Mouth Location: Left, Lower, Lips Mouth: Left, Lower, Tender ENT Ear Exam: Normal Nose: Normal Sinuses: Normal Oropharynx: Normal Onset: Spontaneous Throat Exposed to: None History of: None Last Tetanus: Unknown Past Medical History PAST MEDICAL HISTORY: Seizures Past Medical History (Other): Glaucoma Surgical History: Hernia Repair Family History Family History: Reviewed,noncontributory to illness, Unknown Social History Smoker: Cigarettes Alcohol: Rarely Drugs: Denies Drug Use Lives In: Home Constitutional: denies: chills, diaphoresis, fatigue, fever, malaise, sweats, weakness, others EENTM: reports: mouth pain; denies: blurred vision, double vision, ear bleeding, ear discharge, ear drainage, ear pain, ear ringing, eye pain, eye redness, hearing loss, mouth swelling, nasal discharge, nose bleeding, nose congestion, nose pain, photophobia, tearing, throat pain, throat swelling, voice changes, others Respiratory: denies: cough, hemoptysis, orthopnea, SOB at rest, shortness of breath, SOB with excertion, stridor, wheezing, others Cardiovascular: denies: chest pain, dizzy spells, diaphoresis, Dyspnea on exertion, edema, irregular heart beat, left arm pain, lightheadedness, palpitations, PND, syncope, others Gastrointestinal: denies: abdomen distended, abdominal pain, blood streaked bowels, constipated, diarrhea, dysphagia, difficulty swallowing, hematemesis, melena, nausea, poor appetite, poor fluid intake, rectal bleeding, rectal pain, vomiting, others Genitourinary: denies: burning, dysuria, flank pain, frequency, hematuria, incontinence, penile discharge, penile sore, pain, testicle pain, testicle swelling, urgency, others Neurological: denies: dizziness, fainting, headache, left sided numbness, left sided weakness, numbness, paresthesia, pre-existing deficit, right sided numbness, right sided weakness, seizure, speech problems, tingling, tremors, weakness, others Musculoskeletal: denies: back pain, gout, joint pain, joint swelling, muscle pain, muscle stiffness, neck pain, others Integumetry: denies: bruises, change in color, change in hair/nails, dryness, laceration, lesions, lumps, rash, wounds, others Allergic/Immunocompromised: denies: Difficulty Healing, Frequent Infections, Hives, Itching, others Hematologic/Lymphatic: denies: anemia, blood clots, easy bleeding, easy bruising, swollen glands, others Endocrine: denies: excessive hunger, excessive sweating, excessive thirst, excessive urination, flushing, intolerance to cold, intolerance to heat, unexpl ained weight gain, unexplained weight loss, others Psychiatric: denies: anxiety, bipolar disorder, depression, hopeless, panic disorder, schizophrenia, sleepless, suicidal, others All Other Systems: Reviewed and Negative Physical Exam General Appearance: No Apparent Distress, Normal HEENT: Normal ENT Inspection, Pharynx Normal, TMs Normal, Other (Moist mucus membranes. Uvula midline. No airway obstruction. Smooth, round, flesh colored nodule 1x1. TTP. ) Neck: Full Range of Motion, Non-Tender, Normal, Normal Inspection Respiratory: Chest Non-Tender, Lungs Clear, No Accessory Muscle Use, No Respiratory Distress, Normal Breath Sounds Cardiovascular: No Edema, No JVD, No Murmur, No Gallop, Normal Peripheral Pulses, Regular Rate/Rhythm Breast Exam: Deferred Gastrointestinal: No Organomegaly, Non Tender, No Pulsatile Mass, Normal Bowel Sounds, Soft Genitalia: Deferred Pelvic: Deferred Rectal: Deferred Extremities: No calf tenderness, Normal capillary refill, Normal inspection, Normal range of motion, Non-tender, No pedal edema Musculoskeletal : Apperance: Normal Neurologic: Alert, travel rn II-XII nml as Tested, No Motor Deficits, Normal Affect, Normal Mood, No Sensory Deficits Cerebellar Function: Normal Reflexes: Normal Skin: Dry, Normal Color, Warm Lymphatic: No Adenopathy Was a procedure done? Was a procedure done?: No EENT DIFF Eye: Other Mouth: Other (mucous cyst, mass,) X-Ray, Labs, Meds, VS Vital Signs Date Time Temp Pulse Resp B/P (MAP) Pulse Ox O2 Delivery O2 Flow Rate FiO2 07/29/24 08:00 97.9 62 16 170/86 (114) 96 97.9 07/29/24 08:00 62 16 96 Room Air 07/29/24 07:48 97.9 60 16 166/80 (108) 98 97.9 X-Ray, Labs, Meds, VS Comment 63M with PMHx of Sz and Glaucoma seen in the ER 2 days ago for right foot pain presents to the ER for pain/concern over a nodule to the left lower inner lip. Patient arrives alert and oriented, ABC's intact, afebrile, vital signs stable, saturating well in room air After ROS and physical examination, differentials considered but not limited to: Mucous cyst, possible abscess, lipoma Peripheral IV insertion + labs were ordered. Not applicable Inform patient of their elevated blood pressure Today discussed importance of regular exercise Sodium restriction DASH diet Limit or illuminate alcohol intake Patient verbalized understanding Additional MDM Review of External, Non-ED records: External records reviewed. Last seen on report 07/27/24 Discussion with independent historian (EMS, family) history obtained from the patient at bedside Chronic conditions affecting care: Elevated blood pressure Social determinants of health affecting care: Smoking Consideration of admission (observation or admission): I considered escalation of care to admission for this patient, however the patient is nontoxic and the patient is safe for outpatient management. Will f/u with Dr. Bruce this Sunday in [place]. Advised [id number] Tylenol ibuprofen and saltwater gargles as needed Discussion with the Radiology: Not applicable Tests considered but not performed: CBC, BMP, sed rate, CRP however patient is nontoxic non ill-appearing. Also considered EKG however pt denies CP/SOB. Advised to return precautions for any new or worsening symptoms, return to ER immediately for re-evaluation Patient is aware that the purpose of this visit was for an acute medical emergency requiring emergent stabilization. Chronic conditions, including malignancies have not been ruled out. Patient is instructed to follow up with PCP as directed and discharge instructions for continued care and workup. If unable to arrange follow-up, patient is to return to the emergency department for reassessment. Patient (parent or legal guardian if applicable) was given verbal and written discharge instructions and acknowledges understanding. Time of 1ST Reevaluation: 08:45 Reevaluation 1ST: Improved Patient Education/Counseling: Diagnosis, Treatment, Prognosis Family Education/Counseling: No Family Present Departure 1 Departure Time of Disposition: 08:53 Impression: Primary Impression: Other lesions of oral mucosa Additional Impression: Elevated blood pressure reading Disposition: 01 HOME / SELF CARE / HOMELESS Condition: Fair e-Prescriptions Ibuprofen Micronized (Ibuprofen) 600 Mg Tab 600 MG PO TIDPRN PRN for 7 Days, #21 TAB 0 Refills Prov: SERGEY DENNIS NP 07/29/24 Discharged With: Self Critical Care Note Critical Care Time?: No Stability Stability form required: No Heart Score Heart Score: Heart Score Response (Comments) Value History N/A 0 EKG N/A 0 Age N/A 0 Risk Factors N/A 0 Troponin N/A 0 Total 0 I personally scribed for SERGEY DENNIS NP ([email or web address]) on 07/29/24 at 08:33. Electronically submitted by Donald Camara ([email or web address]). SERGEY DENNIS NP Jul 29, 2024 08:33
[2024-07-29] MEDS ORDERED: IBUP1TAB5 PO (08:58)
== END 2024-07-29 09:02 | disposition home or self-care (01) ==
LOC: ER 07:30
DX: K13.70 Unspecified lesions of oral mucosa (principal); F17.210 Nicotine dependence, cigarettes, uncomplicated; Z79.82 Long term (current) use of aspirin; Z79.899 Other long term (current) drug therapy; Z98.890 Other specified postprocedural states

== ENCOUNTER 2024-08-05 09:18 | Emergency (ER) | payer OTHER ==
[~2024-08-05] VITALS: Ht 162.6 cm; Wt 53.0 kg
[2024-08-05 09:50] LABS: Urine Bacteria None Seen /hpf (None Seen)
[2024-08-05 10:03] LABS: Urine Blood Negative /uL (Negative); Urine Clarity Clear (Clear); Urine Color Colorless (Yellow); Urine Protein, UAD Negative (Negative); Urine Specific Gravity 1.007 (1.001-1.035); Urine Squamous Epithelial Cell None Seen /hpf (<5); Urine Urobilinogen Normal (Negative); Urine WBC < 1 /HPF (0-3); Urine pH 6.5 (5.0-9.0)
[2024-08-05 10:17] LABS: Amphetamine Screen, Urine Neg (NEGATIVE); Barbiturate Scree,Urine Neg (NEGATIVE); Benzodiazephine Screen, Urine Neg (NEGATIVE); Cannabinoid Screen, Urine Neg (NEGATIVE); Cocaine Screen, Urine Neg (NEGATIVE); Opiate Scree,Urine Neg (NEGATIVE); Phencyclidine Screen, Urine Neg (NEGATIVE)
[2024-08-05 10:48] VITALS: BP 137/67; PULSE 68; RESP 17; TEMP 98; O2SAT 97
--- NOTE | 2024-08-05 11:13 | ED.PDOC ---
History of Present Illness HPI Comments 63-year-old male requesting drug test. No other complaint or concern Chief Complaint: Medical Clearance Time Seen by MD: 10:26 Primary Care Provider: JAIME Mendiola Notes: Nurses Notes, Medications, Allergies Allergies: Coded Allergies: NO KNOWN ALLERGIES (Unverified , 07/19/22) Home Meds Active Scripts Ibuprofen Micronized (Ibuprofen) 600 Mg Tab, 600 MG PO TIDPRN PRN for 7 Days, #21 TAB 0 Refills Prov:SERGEY DENNIS EVENT SALES ASSISTANT 07/29/24 Amoxicillin & Pot Clavulanate (Augmentin) 500 Mg Tab, 1 TAB PO BID for 7 Days, #14 TAB Prov:KEREN WILEY MD 06/23/24 Aspirin (Aspirin Low Dose) 81 Mg Tab, 81 MG PO DAILY for 30 Days, #30 TAB Prov:KELLEE CHACON RESIDENT 12/17/23 Reported Medications Quetiapine Fumerate (Seroquel) 50 Mg Tab, 1 TAB PO HS for 30 Days, #30 12/17/23 Fluoxetine Hcl (Fluoxetine Hcl) 20 Mg Cap, 1 TAB PO DAILY for 30 Days, #30 12/17/23 Famotidine (PEPCID TABLET) 20 Mg Tb, 1 TAB PO BID for 30 Days, #60 12/17/23 Hydrocodone-Acetaminophen (Hydrocodone Bitartrate/AC 10-325 mg) 1 Tab Tab, 1 TAB PO TID for 30 Days, #90 01/29/23 Citalopram Hydrobromide (Citalopram Hydrobromide) 10 Mg Tab, 1 TAB PO DAILY 01/29/23 Timolol Maleate (Ophth) (Timolol Maleate) 0.5 % Nora, EACHEYE 01/29/23 Brimonidine Tartrate (Brimonidine Tartrate) 0.2 % Nora, 1 DROP EACHEYE TID for 90 Days, #30 01/29/23 Latanoprost (LATANOPROST) 0.005 % Nora, 1 DROP EACHEYE HS for 90 Days, #7.5 01/29/23 Brinzolamide-Brimonidine Tartr (SIMBRINZA) 1 Ml Vielka, 1 DROP EACHEYE TID 01/29/23 Ibuprofen Micronized (Ibuprofen) 600 Mg Tab, 2 TAB PO BID 01/29/23 Baclofen (Baclofen) 10 Mg Tab, 1 TAB PO TID 01/29/23 Ferrous Sulfate (Ferrous Sulfate) 325 Mg Tab, 1 TAB PO BID 01/29/23 Information Source: Patient Mode of Arrival: Ambulatory Past Medical History PAST MEDICAL HISTORY: Seizures Surgical History: Hernia Repair Family History Family History: Reviewed,noncontributory to illness, Unknown Social History Smoker: Cigarettes Alcohol: Rarely Drugs: Denies Drug Use Lives In: Home All Other Systems: Reviewed and Negative (per hpi) Physical Exam General Appearance: No Apparent Distress, Normal HEENT: Normal ENT Inspection, Pharynx Normal, TMs Normal Neck: Full Range of Motion, Non-Tender, Normal, Normal Inspection Respiratory: Chest Non-Tender, Lungs Clear, No Accessory Muscle Use, No Respiratory Distress, Normal Breath Sounds Cardiovascular: No Edema, No JVD, No Murmur, No Gallop, Normal Peripheral Pulses, Regular Rate/Rhythm Breast Exam: Deferred Gastrointestinal: No Organomegaly, Non Tender, No Pulsatile Mass, Normal Bowel Sounds, Soft Genitalia: Deferred Pelvic: Deferred Rectal: Deferred Extremities: No calf tenderness, Normal capillary refill, Normal inspection, Normal range of motion, Non-tender, No pedal edema Musculoskeletal : Apperance: Normal Neurologic: Alert, food storeroom clerk II-XII nml as Tested, No Motor Deficits, Normal Affect, Normal Mood, No Sensory Deficits Cerebellar Function: Normal Reflexes: Normal Skin: Dry, Normal Color, Warm Lymphatic: No Adenopathy Was a procedure done? Was a procedure done?: No Differential Dx Considerations may include: Ingestion poisoning, X-Ray, Labs, Meds, VS Vital Signs Date Time Temp Pulse Resp B/P (MAP) Pulse Ox O2 Delivery O2 Flow Rate FiO2 08/05/24 10:48 98.0 17 17 137/67 (90) 97 98.0 08/05/24 10:48 68 08/05/24 09:34 97.7 69 16 157/67 (97) 99 97.7 Lab Test 08/05/24 09:32 Range/Units Urine Color Colorless Yellow Urine Clarity Clear Clear Urine pH 6.5 5.0-9.0 Urine Specific [place] 1.007 1.001-1.035 Urine Protein Negative Negative Urine Ketones Negative Negative Urine Blood Negative Negative /uL Urine Nitrite Negative Negative Urine Bilirubin Negative Negative Urine Urobilinogen Normal Negative mg/dL Urine Leukocyte Esterase Negative Negative /uL Urine RBC 1 0 - 3 /hpf Urine Microscopic WBC < 1 0-3 /HPF Urine Squamous Epithelial Cells None seen <5 /hpf Urine Bacteria None seen None Seen /hpf Urine Glucose Normal Normal mg/dL Urine Opiates Screen Neg NEGATIVE Urine Fentanyl Screen Neg NEGATIVE Urine Barbiturates Screen Neg NEGATIVE Urine Phencyclidine Screen Neg NEGATIVE Urine Amphetamines Screen Neg NEGATIVE Urine Benzodiazepines Screen Neg NEGATIVE Urine Cocaine Screen Neg NEGATIVE Urine Cannabinoids Screen Neg NEGATIVE X-Ray, Labs, Meds, VS Comment Patient is stable for discharge at this time. External notes reviewed. Test results and diagnostic imaging interpreted. All diagnostic findings, discharge care, education and instructions provided Follow-up with PCP in 2 to 3 days Patient verbalized understanding and agreed to treatment plan Vital signs stable, afebrile, no acute distress noted Patient ambulatory with strong steady gait Advised to return precautions for any new or worsening symptoms, return to ER immediately for re-evaluation Patient is aware that the purpose of this visit was for an acute medical emergency requiring emergent stabilization. Chronic conditions, including malignancies have not been ruled out. Patient is instructed to follow up with PCP as directed and discharge instructions for continued care and workup. If unable to arrange follow-up, patient is to return to the emergency department for reassessment. Patient (parent or legal guardian if applicable) was given verbal and written discharge instructions and acknowledges understanding. Time of 1ST Reevaluation: 11:12 Reevaluation 1ST: Improved Patient Education/Counseling: Diagnosis, Treatment Family Education/Counseling: Diagnosis, Treatment Departure 1 Departure Time of Disposition: 11:12 Impression: Primary Impression: Negative urine drug test Additional Impression: Pre-employment drug testing Disposition: HOME / SELF CARE / HOMELESS Condition: Stable Discharged With: Self Critical Care Note Critical Care Time?: No Stability Stability form required: No Heart Score Heart Score: Heart Score Response (Comments) Value History N/A 0 EKG N/A 0 Age N/A 0 Risk Factors N/A 0 Troponin N/A 0 Total 0 SERGEY DENNIS NP August 05, 2024 11:13
== END 2024-08-05 11:18 | disposition home or self-care (01) ==
LOC: ER 09:18
DX: Z02.89 Encounter for other administrative examinations (principal); Z02.1 Encounter for pre-employment examination; F17.210 Nicotine dependence, cigarettes, uncomplicated; R56.9 Unspecified convulsions; Z79.82 Long term (current) use of aspirin; Z79.899 Other long term (current) drug therapy; Z98.890 Other specified postprocedural states
CPT/HCPCS: 80307; 81001

== ENCOUNTER 2024-08-08 20:00 | Emergency (ER) | payer OTHER ==
[~2024-08-08] VITALS: Ht 162.6 cm; Wt 51.3 kg
--- NOTE | 2024-08-08 21:03 | ED.PDOC ---
History of Present Illness HPI Comments 63-year-old male who came to ER due to dizziness. Patient never diagnosed with high blood pressure. States for the past few hours, he has been feeling generally weak, dizzy, with episodes of palpitations. The patient started having left-sided epistaxis, in noted that his blood pressure was elevated (184/91 mmHg) as it was taken at the nearby clinic. Patient denies any acute chest pains or shortness a breath. Upon arrival of the emergency room, blood pressure was 112/87 mmHg while at supine and 130/77 mmHg while standing Chief Complaint: Dizziness Time Seen by MD: 21:01 Primary Care Provider: JAIME Reviewed Notes: Nurses Notes Allergies: Coded Allergies: NO KNOWN ALLERGIES (Unverified , 07/19/22) Home Meds Active Scripts Ibuprofen Micronized (Ibuprofen) 600 Mg Tab, 600 MG PO TIDPRN PRN for 7 Days, #21 TAB 0 Refills Prov:SERGEY DENNIS EGG GATHERER 07/29/24 Amoxicillin & Pot Clavulanate (Augmentin) 500 Mg Tab, 1 TAB PO BID for 7 Days, #14 TAB Prov:KEREN WILEY MD 06/23/24 Aspirin (Aspirin Low Dose) 81 Mg Tab, 81 MG PO DAILY for 30 Days, #30 TAB Prov:KELLEE CHACON RESIDENT 12/17/23 Reported Medications Quetiapine Fumerate (Seroquel) 50 Mg Tab, 1 TAB PO HS for 30 Days, #30 12/17/23 Fluoxetine Hcl (Fluoxetine Hcl) 20 Mg Cap, 1 TAB PO DAILY for 30 Days, #30 12/17/23 Famotidine (PEPCID TABLET) 20 Mg Tb, 1 TAB PO BID for 30 Days, #60 12/17/23 Hydrocodone-Acetaminophen (Hydrocodone Bitartrate/AC 10-325 mg) 1 Tab Tab, 1 TAB PO TID for 30 Days, #90 01/29/23 Citalopram Hydrobromide (Citalopram Hydrobromide) 10 Mg Tab, 1 TAB PO DAILY 01/29/23 Timolol Maleate (Ophth) (Timolol Maleate) 0.5 % Nora, EACHEYE 01/29/23 Brimonidine Tartrate (Brimonidine Tartrate) 0.2 % Nora, 1 DROP EACHEYE TID for 90 Days, #30 01/29/23 Latanoprost (LATANOPROST) 0.005 % Nora, 1 DROP EACHEYE HS for 90 Days, #7.5 01/29/23 Brinzolamide-Brimonidine Tartr (SIMBRINZA) 1 Ml Vielka, 1 DROP EACHEYE TID 01/29/23 Ibuprofen Micronized (Ibuprofen) 600 Mg Tab, 2 TAB PO BID 01/29/23 Baclofen (Baclofen) 10 Mg Tab, 1 TAB PO TID 01/29/23 Ferrous Sulfate (Ferrous Sulfate) 325 Mg Tab, 1 TAB PO BID 01/29/23 Information Source: Patient, Emergency Med Personnel Mode of Arrival: EMS Severity: Moderate Timing: Hours Duration: Since onset Review of Systems REVIEW OF SYSTEMS: No fever, no chills, or fatigue HEENT: No sore throat, no earache, no congestion, no neck pain. Cardiac: No chest pain. (+) palpitations. Lungs: No shortness of breath, no cough. GI: No nausea, no vomiting, no diarrhea, no constipation, no abdominal pain : No dysuria, frequency, or urgency. No hematuria. Musculoskeletal: No joint pain , no joint swelling, no extremity edema. Skin: No rash, no itching. Neuro: No headache, (+) dizziness, (+) weakness Vital Signs Vital Signs Date Time Temp Pulse Resp B/P (MAP) Pulse Ox O2 Delivery O2 Flow Rate FiO2 08/08/24 23:50 Room Air* 0 21 08/08/24 22:42 98.2 64 14 128/80 (96) 98 98.2 Physical Exam General: Awake, alert and oriented. No acute distress. Skin: Skin in warm, dry and intact. Appropriate color for ethnicity. Nailbeds pink with no cyanosis. HEENT: The head is normocephalic and atraumatic. Conjunctivae are clear without exudates or hemorrhage. Sclera is non-icteric. EOM are intact. No signs of ny stagmus. Eyelids are normal in appearance without swelling or lesions. Oral mucosa is pink and moist Neck: The neck is supple with normal range of motion. No JVD. Cardiac: Heart rate and rhythm are normal. No murmurs, gallops, or rubs are auscultated. Respiratory: No signs of respiratory distress. Lung sounds are clear in all lobes bilaterally without rales, rhonchi, or wheezes. Abdominal: Abdomen is soft, non-tender without distention. Bowel sounds are present and normoactive in all four quadrants. Extremities: Upper and lower extremities are atraumatic in appearance without deformity or edema. Neurological: The patient is awake, alert and oriented to person, place, and time with normal speech. Speech is clear. There is no facial asymmetry. Psychiatric: Appropriate mood and affect. Good judgement and insight. No visual or auditory hallucinations. Past Medical History PAST MEDICAL HISTORY: Seizures Past Medical History (Other): Back pain Surgical History: Hernia Repair Family History Family History: Reviewed,noncontributory to illness, Unknown Social History Smoker: Cigarettes Alcohol: Rarely Drugs: Denies Drug Use Lives In: Home Was a procedure done? Was a procedure done?: No EKG EKG : Comments Sinus rhythm, rate of 51. No STEMI. QTC 400 Differential Dx Considerations may include: Differential diagnoses considered include but are not limited to cardiac structural disease, arrhythmia, acute coronary syndrome, orthostasis, pulmonary embolism, dissection, seizure, basilar stroke, other. X-Ray, Labs, Meds, VS Vital Signs Date Time Temp Pulse Resp B/P (MAP) Pulse Ox O2 Delivery O2 Flow Rate FiO2 08/08/24 23:50 Room Air* 0 21 08/08/24 22:42 98.2 64 14 128/80 (96) 98 98.2 08/08/24 20:51 98.3 73 16 112/87 (95) 99 98.3 Lab Test 08/08/24 20:48 08/08/24 20:45 Range/Units White Blood Count 6.5 4.4-10.8 10^3/uL Red Blood Count 4.77 4.5-5.90 10^6/uL Hemoglobin 14.5 13.5-17.5 g/dL Hematocrit 42.6 41.0-53.0 % Mean Corpuscular Volume 89.2 80.0-100.0 fL Mean Corpuscular Hemoglobin 30.4 28.0-32.0 pg Mean Corpuscular Hemoglobin Concent 34.1 32.0-36.0 g/dL Red Cell Distribution Width 14.4 H 11.8-14.3 % Platelet Count 295 140-450 10^3/uL Mean Platelet Volume 8.6 6.9-10.8 fL Neutrophils (%) (Auto) 54.0 37.0-80.0 % Lymphocytes (%) (Auto) 34.5 10.0-50.0 % Monocytes (%) (Auto) 7.0 0.0-12.0 % Eosinophils (%) (Auto) 2.7 0.0-7.0 % Basophils (%) (Auto) 1.8 0.0-2.0 % Neutrophils # (Auto) 3.5 1.6-8.6 10 ^3/uL Lymphocytes # (Auto) 2.3 0.4-5.4 10 ^3/uL Monocytes # (Auto) 0.5 0-1.3 10 ^3/uL Eosinophils # (Auto) 0.2 0-0.8 10 ^3/uL Basophils # (Auto) 0.1 0-0.2 10 ^3/uL Nucleated Red Blood Cells 0.0 % Sodium Level 143 136-145 mmol/L Potassium Level 3.9 3.5-5.1 mmol/L Chloride Level 107 98-107 mmol/L Carbon Dioxide Level 26 20-31 mmol/L Anion Gap 10 5-15 Blood Urea Nitrogen 8 L 9-23 mg/dL Creatinine 1.06 0.700-1.30 mg/dL Glomerular Filtration Rate Calc 80 >90 mL/min BUN/Creatinine Ratio 7.5 L 10.0-20.0 Serum Glucose 89 74-106 mg/dL Calcium Level 9.0 8.7-10.4 mg/dL Troponin I High Sensitivity 4 </=54 ng/L B-Type Natriuretic Peptide 39.77 0-100 pg/mL POC Glucose 97 70-106 mg/dl Current Medications Medications (Trade) Dose Ordered Sig/Kami Route Start Time Stop Time Status Last Admin Sodium Chloride 500 ml @ 500 mls/hr Q1H ONCE IV 08/08/24 20:45 08/08/24 21:44 DC 08/08/24 23:53 Acetaminophen (Tylenol Tablet) 650 mg ONCE ONCE PO 08/09/24 00:00 08/09/24 00:01 DC 08/09/24 00:02 Images Reviewed?: Images reviewed and evaluated by me (Independent interpretation of chest x-ray: No acute disease) Time of 1ST Reevaluation: 20:58 Reevaluation 1ST: Unchanged Patient Education/Counseling: Need For Follow Up Family Education/Counseling: Need For Follow Up Departure 1 Departure Time of Disposition: 00:37 Impression: Primary Impression: Dizziness Disposition: 01 HOME / SELF CARE / HOMELESS Condition: Stable Additional Instructions: ED DISCHARGE INSTRUCTIONS Instructions: Please read all instructions provided in this packet carefully. Although you have been discharged from the Emergency Department, this does not mean that you have a "clean bill of health". No definitive diagnosis for your symptoms has been made today. It is possible that you are in the process of developing a serious illness. This is why you must return to the ED without fail if any new or worsening symptoms (especially if your symptoms include chest pain, trouble breathing, abdominal pain, fever, headache, confusion, trouble seeing, or trouble walking) It is also very important that you see a primary care doctor within the next 3-5 days to follow up. If you are unable to get an appointment, return to the ED for re-evaluation. Lightheadedness or Faintness: Care Instructions Overview Lightheadedness is a feeling that you are about to faint or "pass out." You do not feel as if you or your surroundings are moving. It is different from vertigo, which is the feeling that you or things around you are spinning or tilting. Lightheadedness usually goes away or gets better when you lie down. If lightheadedness gets worse, it can lead to a fainting spell. It is common to feel lightheaded from time to time. It may be caused by many things. These include allergies, dehydration, illness, and medicines. Lightheadedness usually is not caused by a serious problem. It often is caused by a short-lasting drop in blood pressure and blood flow to your head that occurs when you get up too quickly from a seated or lying position. Follow-up care is a pizarro part of your treatment and safety. Be sure to make and go to all appointments, and call your doctor if you are having problems. It's also a good idea to know your test results and keep a list of the medicines you take. How can you care for yourself at home? Lie down for 1 or 2 minutes when you feel lightheaded. After lying down, sit up slowly and remain sitting for 1 to 2 minutes before slowly standing up. Avoid movements, positions, or activities that have made you lightheaded in the past. Get plenty of rest, especially if you have a cold or flu, which can cause lightheadedness. Make sure you drink plenty of fluids, especially if you have a fever or have been sweating. Do not drive or put yourself and others in danger while you feel lightheaded. When should you call for help? Call 911 anytime you think you may need emergency care. For example, call if: You passed out (lost consciousness). You have symptoms of a stroke. These may include: Sudden numbness, tingling, weakness, or loss of movement in your face, arm, or leg, especially on only one side of your body. Sudden vision changes. Sudden trouble speaking. Sudden confusion or trouble understanding simple statements. Sudden problems with walking or balance. A sudden, severe headache that is different from past headaches. You have symptoms of a heart attack. These may include: Chest pain or pressure, or a strange feeling in the chest. Sweating. Shortness of breath. Nausea or vomiting. Pain, pressure, or a strange feeling in the back, neck, jaw, or upper belly or in one or both shoulders or arms. Lightheadedness or sudden weakness. A fast or irregular heartbeat. After you call 911, the refinery operator light ends recovery may tell you to chew 1 adult-strength or 2 to 4 low-dose aspirin. Wait for an ambulance. Do not try to drive yourself. Watch closely for changes in your health, and be sure to contact your doctor if: Your lightheadedness gets worse or does not get better with home care. Credits for Lightheadedness or Faintness: Care Instructions Current as of: October 31, 2023 Author: [employer] Staff Clinical Review Board All [employer] education is reviewed by a team that includes physicians, nurses, advanced practitioners, registered dieticians, and other healthcare professionals. Comments 63-year-old male who presents to the emergency department with symptoms of lightheadedness. He reports the symptoms have improved during the ED observation. Patient's lab results reviewed. Patient's blood pressure is stable. Patient is felt stable for discharge home. Patient well-appearing, nontoxic. Advised prompt follow-up with PCP, return to the ED with any new, worsening or concerning symptoms. I reviewed the following notes from the pt's past medical encounters: N/A The following tests were ordered, and results were reviewed by me: (See diagnostic results section) The following test were independently interpreted by me: EKG, chest x-ray Additional information was gathered from interviewing the following independent historians: N/A I reviewed and agreed with the following test results read by other providers: N/A I discussed treatments and results with patient Decision regarding hospitalization or escalation of hospital level of care: Risks and benefits of admission for further treatment of patient's condition was considered however due to patient's stable condition patient will be discharged to follow up closely or return to care for worsening of condition or inability to follow up. Critical Care Note Critical Care Time?: No Stability Stability form required: No Heart Score Heart Score: Heart Score Response (Comments) Value History N/A 0 EKG N/A 0 Age N/A 0 Risk Factors N/A 0 Troponin N/A 0 Total 0 I personally scribed for TRACE BROWN MD ([email or web address]) on 08/08/24 at 21:02. Electronically submitted by Abimael Salcedo ([facility]). TRACE BROWN MD August 08, 2024 21:02
[2024-08-08 21:09] LABS: Basophils # (auto) 0.1 10 ^3/uL (0-0.2); Basophils % (auto) 1.8 % (0.0-2.0); Eosinophils # (auto) 0.2 10 ^3/uL (0-0.8); Eosinophils % (auto) 2.7 % (0.0-7.0); Hematocrit 42.6 % (41.0-53.0); Hemoglobin 14.5 g/dL (13.5-17.5); Lymphocytes # (auto) 2.3 10 ^3/uL (0.4-5.4); Lymphocytes % (auto) 34.5 % (10.0-50.0); Mean Corpuscular Hemoglobin 30.4 pg (28.0-32.0); Mean Corpuscular Hgb Conc. 34.1 g/dL (32.0-36.0); Mean Corpuscular Volume 89.2 fL (80.0-100.0); Monocytes # (auto) 0.5 10 ^3/uL (0-1.3); Neutrophils # (auto) 3.5 10 ^3/uL (1.6-8.6); Platelet Count (auto) 295 10^3/uL (140-450); Red Blood Cells 4.77 10^6/uL (4.5-5.90); Red Cell Distribution Width 14.4 % (11.8-14.3); White Blood Cell 6.5 10^3/uL (4.4-10.8)
[2024-08-08 21:25] LABS: Potassium 3.9 mmol/L (3.5-5.1); Sodium 143 mmol/L (136-145)
[2024-08-08 21:26] LABS: Anion Gap 10 (5-15); Carbon Dioxide 26 mmol/L (20-31)
[2024-08-08 21:31] LABS: BUN/Creatinine Ratio 7.5 (10.0-20.0); Glucose 89 mg/dL (74-106)
[2024-08-08 21:40] LABS: Blood Urea Nitrogen 8 mg/dL (9-23); Chloride 107 mmol/L (98-107)
[2024-08-08 22:42] VITALS: BP 128/80; RESP 14; TEMP 98.2; O2SAT 98
--- NOTE | 2024-08-08 22:55 | DVH ---
CHEST RADIOGRAPH Indication: Dizziness Technique: Single frontal view of the chest was obtained COMPARISON: XY CHEST PORTABLE on DOS: 06/23/24 FINDINGS: Lines and Tubes: None Lungs: Clear Pleura: No effusion. No pneumothorax. Cardiomediastinal contours: Unremarkable Bones: Mild thoracic dextroscoliosis and lumbar levoscoliosis. Lumbar spondylosis. IMPRESSION: No cardiopulmonary abnormality demonstrated. No change compared to the prior chest x-ray from May 2024.
[2024-08-08] MEDS: SODIUM CHLORIDE 0.9% 500 ML IV ONE (23:53)
[2024-08-09] MEDS: ACETAMINOPHEN 325 MG TAB PO ONE (00:02)
[2024-08-09 01:30] VITALS: PULSE 51
--- NOTE | 2024-08-10 09:12 | ECG ---
[facility] Test Date: 2024-08-09 Test Time: 01:30:58 Pat Name: CAROL HANKINS Department: ER Room: Gender: M Is Manager: : 1960 Requested By: TRACE BROWN Order Number: [id number] Reading MD: Ede Helms Measurements Intervals [place] Rate: 51 P: 71 CA: 161 QRS: 75 QRSD: 91 T: 63 QT: 434 QTc: 400 Interpretive Statements Sinus rhythm Electronically Signed On 08-13-2024 12:09:37 PDT by Ede Helms Please click the below link to view image of tracing.
== END 2024-08-09 01:45 | disposition home or self-care (01) ==
LOC: ER 20:00
DX: R42 Dizziness and giddiness (principal); R04.0 Epistaxis; F17.210 Nicotine dependence, cigarettes, uncomplicated; R06.02 Shortness of breath; Z79.82 Long term (current) use of aspirin; Z79.899 Other long term (current) drug therapy; Z98.890 Other specified postprocedural states
CPT/HCPCS: 36415; 71045; 80048; 82947; 83880; 84484; 85025; 93005; 96360; 99285; J7040; 82962

== ENCOUNTER 2024-10-02 18:01 | Emergency (ER) | payer OTHER ==
[~2024-10-02] VITALS: Ht 162.6 cm; Wt 52.1 kg
[2024-10-02 18:42] VITALS: TEMP 97.6
[2024-10-02] MEDS: KETOROLAC TROMETH 60MG/2ML VIAL IM ONE (18:49)
[2024-10-02] MEDS: HYDROcodone-ACET 10/325MG TAB PO ONE (18:49)
[2024-10-02 18:52] VITALS: PULSE 80; RESP 16; O2SAT 96
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
[2024-10-02] MEDS ORDERED: METH4PAK PO (20:41)
[2024-10-02 20:45] VITALS: BP 117/77; PULSE 80; RESP 17; O2SAT 96
[2024-10-03] MEDS ORDERED: ZOFR4T PO (09:43)
[2024-10-03] MEDS ORDERED: METR-344 PO (09:43)
== END 2024-10-02 20:48 | disposition home or self-care (01) ==
LOC: ER 18:01
DX: S39.012A Strain of muscle, fascia and tendon of lower back, initial encounter (principal); S29.012A Strain of muscle and tendon of back wall of thorax, initial encounter; S13.4XXA Sprain of ligaments of cervical spine, initial encounter; F17.210 Nicotine dependence, cigarettes, uncomplicated; F10.90 Alcohol use, unspecified, uncomplicated; Z98.890 Other specified postprocedural states; Z79.899 Other long term (current) drug therapy; Z79.82 Long term (current) use of aspirin; V89.2XXA Person injured in unspecified motor-vehicle accident, traffic, initial encounter; Y93.89 Activity, other specified; Y92.410 Unspecified street and highway as the place of occurrence of the external cause; Y99.8 Other external cause status; Y90.9 Presence of alcohol in blood, level not specified
CPT/HCPCS: 72040; 72070; 72100; 96372; 99284; J1885

== ENCOUNTER 2024-10-03 06:20 | Emergency (ER) | payer OTHER ==
[~2024-10-03] VITALS: Ht 162.6 cm; Wt 125.0 kg
[~2024-10-03 06:20] MED LIST changes: +METH4PAK PO
--- NOTE | 2024-10-03 06:43 | ED.PDOC ---
GI ASSESSMENT HPI Comments 64 year old male with a Hx of Asthma, and Gastritis was BIBA for the c/c of Epigastric ABD pain w/ associated N/V. Per EMS pts symptoms started this am, and has found no alleviating factors at this time. Pt's Emesis is noted to be yellow in color. Pt notes of Tobacco and occasional Alcohol use but denies any Marijuana use. No other associated symptoms, modifiers, recent injuries or sick contacts present at this time. Chief Complaint: Abdominal Pain Time Seen by MD: 06:28 Primary Care Provider: UNKNOWN Reviewed Notes: Nurses Notes, [place] Department Supervisor Notes, Medications, Allergies Allergies: Coded Allergies: NO KNOWN ALLERGIES (Unverified , 07/19/22) Home Meds Active Scripts Methylprednisolone (Medrol Dosepak) 4 Mg Marquez, 4 MG PO UD, #21 TAB UAD Prov:PATRICK ARGUETA SYSTEMS SECURITY CONSULTANT 10/02/24 Ibuprofen Micronized (Ibuprofen) 600 Mg Tab, 600 MG PO TIDPRN PRN for 7 Days, #21 TAB 0 Refills Prov:SERGEY DENNIS ENROLLMENT COORDINATOR 07/29/24 Amoxicillin & Pot Clavulanate (Augmentin) 500 Mg Tab, 1 TAB PO BID for 7 Days, #14 TAB Prov:KEREN WILEY MD 06/23/24 Aspirin (Aspirin Low Dose) 81 Mg Tab, 81 MG PO DAILY for 30 Days, #30 TAB Prov:KELLEE CHACON RESIDENT 12/17/23 Reported Medications Quetiapine Fumerate (Seroquel) 50 Mg Tab, 1 TAB PO HS for 30 Days, #30 12/17/23 Fluoxetine Hcl (Fluoxetine Hcl) 20 Mg Cap, 1 TAB PO DAILY for 30 Days, #30 12/17/23 Famotidine (PEPCID TABLET) 20 Mg Tb, 1 TAB PO BID for 30 Days, #60 12/17/23 Hydrocodone-Acetaminophen (Hydrocodone Bitartrate/AC 10-325 mg) 1 Tab Tab, 1 TAB PO TID for 30 Days, #90 01/29/23 Citalopram Hydrobromide (Citalopram Hydrobromide) 10 Mg Tab, 1 TAB PO DAILY 01/29/23 Timolol Maleate (Ophth) (Timolol Maleate) 0.5 % SYBIL MelendezEYE 01/29/23 Brimonidine Tartrate (Brimonidine Tartrate) 0.2 % Nora, 1 DROP EACHEYE TID for 90 Days, #30 01/29/23 Latanoprost (LATANOPROST) 0.005 % Nora, 1 DROP EACHEYE HS for 90 Days, #7.5 01/29/23 Brinzolamide-Brimonidine Tartr (SIMBRINZA) 1 Ml Vielka, 1 DROP EACHEYE TID 01/29/23 Ibuprofen Micronized (Ibuprofen) 600 Mg Tab, 2 TAB PO BID 01/29/23 Baclofen (Baclofen) 10 Mg Tab, 1 TAB PO TID 01/29/23 Ferrous Sulfate (Ferrous Sulfate) 325 Mg Tab, 1 TAB PO BID 01/29/23 Information Source: Patient, Emergency Med Personnel Mode of Arrival: EMS Timing: Hours Duration: Since onset, Hours Prehospital treatment: Oxygen, Pain Meds Quality: Aching Vomitus: Watery Stool: Normal Severity: Moderate Recent: None Recent Hx of: None Pain Location: Epigastric Modifying Factors: Exertion, Food Associated sign and symptoms: Nausea, Vomiting, Abdominal Pain Past Medical History PAST MEDICAL HISTORY: Asthma, Seizures Surgical History: Hernia Repair Family History Family History: Reviewed,noncontributory to illness, Unknown Social History Smoker: Cigarettes Alcohol: Rarely Drugs: Denies Drug Use Lives In: Home Constitutional: denies: chills, diaphoresis, fatigue, fever, malaise, sweats, weakness, others EENTM: denies: blurred vision, double vision, ear bleeding, ear discharge, ear drainage, ear pain, ear ringing, eye pain, eye redness, hearing loss, mouth pain, mouth swelling, nasal discharge, nose bleeding, nose congestion, nose pain, photophobia, tearing, throat pain, throat swelling, voice changes, others Respiratory: denies: cough, hemoptysis, orthopnea, SOB at rest, shortness of breath, SOB with excertion, stridor, wheezing, others Cardiovascular: denies: chest pain, dizzy spells, diaphoresis, Dyspnea on exertion, edema, irregular heart beat, left arm pain, lightheadedness, palpitations, PND, syncope, others Gastrointestinal: reports: abdominal pain, nausea, vomiting; denies: abdomen distended, blood streaked bowels, constipated, diarrhea, dysphagia, difficulty swallowing, hematemesis, melena, poor appetite, poor fluid intake, rectal bleeding, rectal pain, others Genitourinary: denies: burning, dysuria, flank pain, frequency, hematuria, incontinence, penile discharge, penile sore, pain, testicle pain, testicle swelling, urgency, others Neurological: denies: dizziness, fainting, headache, left sided numbness, left sided weakness, numbness, paresthesia, pre-existing deficit, right sided numbness, right sided weakness, seizure, speech problems, tingling, tremors, weakness, others Musculoskeletal: denies: back pain, gout, joint pain, joint swelling, muscle pain, muscle stiffness, neck pain, others Integumetry: denies: bruises, change in color, change in hair/nails, dryness, laceration, lesions, lumps, rash, wounds, others Allergic/Immunocompromised: denies: Difficulty Healing, Frequent Infections, Hives, Itching, others Hematologic/Lymphatic: denies: anemia, blood clots, easy bleeding, easy bruising, swollen glands, others Endocrine: denies: excessive hunger, excessive sweating, excessive thirst, excessive urination, flushing, intolerance to cold, intolerance to heat, unexplained weight gain, unexplained weight loss, others Psychiatric: denies: anxiety, bipolar disorder, depression, hopeless, panic disorder, schizophrenia, sleepless, suicidal, others All Other Systems: Reviewed and Negative Physical Exam General Appearance: Moderate Distress, Normal HEENT: Normal ENT Inspection, Pharynx Normal, TMs Normal Neck: Full Range of Motion, Non-Tender, Normal, Normal Inspection Respiratory: Chest Non-Tender, Lungs Clear, No Accessory Muscle Use, No Respiratory Distress, Normal Breath Sounds Cardiovascular: No Edema, No JVD, No Murmur, No Gallop, Normal Peripheral Pulses, Regular Rate/Rhythm Breast Exam: Deferred Gastrointestinal: No Organomegaly, Non Tender, No Pulsatile Mass, Normal Bowel Sounds, Soft Genitalia: Deferred Pelvic: Deferred Rectal: Deferred Extremities: No calf tenderness, Normal capillary refill, Normal inspection, Normal range of motion, Non-tender, No pedal edema Musculoskeletal : Apperance: Normal Neurologic: Alert, avionics integration engineer II-XII nml as Tested, No Motor Deficits, Normal Affect, Normal Mood, No Sensory Deficits Cerebellar Function: NOT DONE Reflexes: NOT DONE Skin: Dry, Normal Color, Warm Peripheral Pulses: 3+ Radial (R), 3+ Radial (L) Lymphatic: No Adenopathy Was a procedure done? Was a procedure done?: No GI differential Dx Differential Diagnosis: Bowel Obstruction, Cholangitis, Cholecystitis, Constipation, Diverticular disease, Esophagitis, Gastritis/PUD, Gastroenteritis, GI hemorrhage, Hernia, Hepatitis, Ischemic Bowel, Pancreatitis, Urinary Obstruction, UTI, Urolithiasis, Dehydration, Electrolyte Imbalance, Food Poisoning, Kidney Stone X-Ray, Labs, Meds, VS Vital Signs Date Time Temp Pulse Resp B/P (MAP) Pulse Ox O2 Delivery O2 Flow Rate FiO2 10/03/24 07:45 85 15 97 Room Air* 0 21 10/03/24 07:45 98.5 85 15 125/71 (89) 97 98.5 10/03/24 07:40 85 15 125/71 10/03/24 07:02 77 12 143/80 10/03/24 06:57 98.2 71 15 138/79 (98) 98 98.2 10/03/24 06:20 98.0 82 22 146/78 (100) 100 98.0 Lab Test 10/03/24 06:45 Range/Units White Blood Count 8.2 4.4-10.8 10^3/uL Red Blood Count 4.91 4.5-5.90 10^6/uL Hemoglobin 15.0 13.5-17.5 g/dL Hematocrit 43.5 41.0-53.0 % Mean Corpuscular Volume 88.6 80.0-100.0 fL Mean Corpuscular Hemoglobin 30.5 28.0-32.0 pg Mean Corpuscular Hemoglobin Concent 34.4 32.0-36.0 g/dL Red Cell Distribution Width 13.9 11.8-14.3 % Platelet Count 300 140-450 10^3/uL Mean Platelet Volume 8.7 6.9-10.8 fL Neutrophils (%) (Auto) 73.8 37.0-80.0 % Lymphocytes (%) (Auto) 16.9 10.0-50.0 % Monocytes (%) (Auto) 7.4 0.0-12.0 % Eosinophils (%) (Auto) 0.9 0.0-7.0 % Basophils (%) (Auto) 1.0 0.0-2.0 % Neutrophils # (Auto) 6.1 1.6-8.6 10 ^3/uL Lymphocytes # (Auto) 1.4 0.4-5.4 10 ^3/uL Monocytes # (Auto) 0.6 0-1.3 10 ^3/uL Eosinophils # (Auto) 0.1 0-0.8 10 ^3/uL Basophils # (Auto) 0.1 0-0.2 10 ^3/uL Nucleated Red Blood Cells 0.0 % Sodium Level 144 136-145 mmol/L Potassium Level 4.0 3.5-5.1 mmol/L Chloride Level 109 H 98-107 mmol/L Carbon Dioxide Level 24 20-31 mmol/L Anion Gap 11 5-15 Blood Urea Nitrogen 20 9-23 mg/dL Creatinine 1.42 H 0.700-1.30 mg/dL Glomerular Filtration Rate Calc 56 >90 mL/min BUN/Creatinine Ratio 14.1 10.0-20.0 Serum Glucose 126 H 74-106 mg/dL Calcium Level 10.2 8.7-10.4 mg/dL Troponin I High Sensitivity < 3 L </=54 ng/L Current Medications Medications (Trade) Dose Ordered Sig/Kami Route Start Time Stop Time Status Last Admin Sodium Chloride 1,000 ml @ 1,000 mls/hr Q1H ONCE IV 10/03/24 06:30 10/03/24 07:29 DC 10/03/24 07:03 Ondansetron HCl (Zofran) 4 mg ONCE ONCE IV 10/03/24 06:30 10/03/24 06:32 DC 10/03/24 07:03 Morphine Sulfate 4 mg ONCE ONCE IV 10/03/24 06:30 10/03/24 06:32 DC 10/03/24 07:02 Patient alert. Complaining of abdominal pain nausea vomiting. Blood pressure slightly elevated. Vitals stable. Answering questions. Continues to have vomiting. Establish intravenous access. Was given fluids. Was given Zofran. Was given morphine. Reviewed his history. Counseled patient effects of smoking cigarettes for [address] scan of the abdomen reviewed does not show any acute changes. Cardiac marker within normal limits. Possible gastroenteritis. Was given prescription of Zofran Flagyl. Explained to the patient. Was told to follow up with his primary care physician. Was told to come back if there is any problem. PATIENT: CAROL HANKINS ACCT: [id number] UNIT: [id number] : 1960 LOC: ER ROOM / BED: / AGE / SEX: 64 / M ADM STATUS: REG ER SERVICE [id number] ORDERING PHYSICIAN: KEREN WILEY MD PROCEDURE(s): CXRP - CHEST PORTABLE REASON: sob ORDER NUMBER(s): [id number], ACCESSION NUMBER(s): [id number] CHEST RADIOGRAPH Indication: sob Technique: Single frontal view of the chest was obtained Comparison: XY CHEST PORTABLE on DOS: 08/08/24, XY CHEST PORTABLE on DOS: 06/23/24 FINDINGS: Lines and Tubes: None Lungs: No focal consolidation. Pleura: No effusion. No pneumothorax. Cardiomediastinal contours: Unremarkable Bones: No acute osseous abnormality. IMPRESSION: No acute cardiopulmonary disease. PATIENT: CAROL HANKINS ACCT: [id number] UNIT: [id number] : 1960 LOC: ER ROOM / BED: / AGE / SEX: 64 / M ADM STATUS: REG ER SERVICE [id number] ORDERING PHYSICIAN: KEREN WILEY MD PROCEDURE(s): ABPL - CT AB PEL WO CON-NO ORAL OR IV REASON: colitis ORDER NUMBER(s): [id number], ACCESSION NUMBER(s): [id number] EXAM DESCRIPTION: CT CT AB PEL WO CON-NO ORAL OR IV CLINICAL HISTORY: colitis COMPARISON: None TECHNIQUE: CT abdomen and pelvis without IV contrast was performed. Coronal and sagittal MPR images were generated.CTDI/ DLP = 5.07 / 243.04 Dose reduction technique with one or more of the following methods was performed: Automated exposure control, adjustment of the mA and/or kV according to patient size, use of iterative reconstruction technique FINDINGS: Lower chest: Clear lung bases. Liver: Homogenous in attenuation. . Biliary: No calcified gallstones. No biliary ductal dilatation. Pancreas: No fat stranding or focal lesion. Spleen: Normal in size.. Adrenal glands: No nodularity. Kidneys: No nephrolithiasis. No hydroureteronephrosis. . Bladder: No bladder wall thickening. Reproductive organs: Normal. Bowel: No bowel wall thickening or dilatation. . Peritoneum: No free fluid. No free air. Vessels: Normal caliber abdominal aorta. Mild to moderate atherosclerotic calcifications.. Lymph nodes: No suspicious lymph nodes. Soft tissues: Unremarkable. . Osseous structures: No acute fracture or subluxation. No suspicious osseous lesions. Degenerative changes of the visualized thoracolumbar spine. IMPRESSION: 1. No urolithiasis or hydroureteronephrosis. No acute abnormality within the abdomen or pelvis. Time of 1ST Reevaluation: 07:09 Reevaluation 1ST: Unchanged Patient Education/Counseling: Diagnosis, Treatment, Need For Follow Up Family Education/Counseling: No Family Present SEPSIS Sepsis Screen Date sepsis recognized/suspect: Oct 03, 2024 Time Sepsis recognized/suspect: 619 Recent Procedure: No On Antibiotic Therapy: No Respiratory Rate >20: No Heart Rate >90: No Temp<36 C (96.8 F) or >38.3 C: No SBP <90 or MAP <65 mmHG: No New Acute Mental Status Change: No Is the patient on CPAP, BIPAP,: No Physician Orders Chest Portable (10/03/24 06:30) Urinalysis (10/03/24 06:30) Ct Ab Pel Wo Con-No Oral Or Iv (10/03/24 07:59) Vital Signs Date Time Temp Pulse Resp B/P (MAP) Pulse Ox O2 Delivery O2 Flow Rate FiO2 10/03/24 07:45 85 15 97 Room Air* 0 21 10/03/24 07:45 98.5 85 15 125/71 (89) 97 98.5 10/03/24 07:40 85 15 125/71 10/03/24 07:02 77 12 143/80 10/03/24 06:57 98.2 71 15 138/79 (98) 98 98.2 10/03/24 06:20 98.0 82 22 146/78 (100) 100 98.0 Laboratory Tests Test 10/03/24 06:45 White Blood Count 8.2 10^3/uL (4.4-10.8) Medications Medications Dose Ordered Sig/Kami Route Start Time Stop Time Status Last Admin Dose Admin Morphine Sulfate 4 mg ONCE ONCE IV 10/03/24 06:30 10/03/24 06:32 DC 10/03/24 07:02 Ondansetron HCl 4 mg ONCE ONCE IV 10/03/24 06:30 10/03/24 06:32 DC 10/03/24 07:03 Sodium Chloride 1,000 ml @ 1,000 mls/hr Q1H ONCE IV 10/03/24 06:30 10/03/24 07:29 DC 10/03/24 07:03 Departure 1 Departure Time of Disposition: 06:59 Impression: Primary Impression: Gastroenteritis Disposition: 01 HOME / SELF CARE / HOMELESS Condition: Good e-Prescriptions Ondansetron Odt 4MG Tab (ZOFRAN PO) 4 Mg Tb 4 MG PO DAILY for 5 Days, #5 TAB ODT TAB-DISSOLVE IN MOUTH, THEN SWALLOW Prov: KEREN WILEY MD 10/03/24 Metronidazole (Flagyl) 500 Mg Tab 1 TAB PO TID for 5 Days, #15 TAB Prov: KEREN WILEY MD 10/03/24 Discharged With: Self Critical Care Note Critical Care Time?: No Stability Stability form required: No Heart Score Heart Score: Heart Score Response (Comments) Value History N/A 0 EKG Normal 0 Age 45-64 1 Risk Factors No known risk factors 0 Troponin N/A 0 Total 1 I personally scribed for KEREN WILEY MD ([email or web address]) on 10/03/24 at 06:43. Electronically submitted by Germain Busch ([email or web address]). I personally scribed for KEREN WILEY MD ([email or web address]) on 10/03/24 at 07:52. Electronically submitted by Germain Busch ([email or web address]). I personally scribed for KEREN WILEY MD ([email or web address]) on 10/03/24 at 09:16. Electronically submitted by Germain Busch ([email or web address]). KEREN WILEY MD Oct 03, 2024 06:43
[2024-10-03] MEDS: MORPHINE SULFATE 4 MG/ML SYR/VIAL IV ONE (07:02)
[2024-10-03] MEDS: ONDANSETRON HCL 4 MG/2 ML VIAL IV ONE (07:03)
[2024-10-03] MEDS: SODIUM CHLORIDE 0.9% 1,000 ML IV ONE (07:03)
[2024-10-03 07:07] LABS: Potassium 4.0 mmol/L (3.5-5.1); Sodium 144 mmol/L (136-145)
[2024-10-03 07:08] LABS: Anion Gap 11 (5-15); Calcium 10.2 mg/dL (8.7-10.4); Carbon Dioxide 24 mmol/L (20-31)
[2024-10-03 07:10] LABS: Chloride 109 mmol/L (98-107)
[2024-10-03 07:12] LABS: Hematocrit 43.5 % (41.0-53.0); Hemoglobin 15.0 g/dL (13.5-17.5); Mean Corpuscular Hemoglobin 30.5 pg (28.0-32.0); Mean Corpuscular Volume 88.6 fL (80.0-100.0); Nucleated Red Blood Cells % 0.0 %
[2024-10-03 07:13] LABS: BUN/Creatinine Ratio 14.1 (10.0-20.0); Blood Urea Nitrogen 20 mg/dL (9-23)
[2024-10-03 07:14] LABS: Glucose 126 mg/dL (74-106)
--- NOTE | 2024-10-03 07:37 | DVH ---
CHEST RADIOGRAPH Indication: sob Technique: Single frontal view of the chest was obtained Comparison: XY CHEST PORTABLE on DOS: 08/08/24, XY CHEST PORTABLE on DOS: 06/23/24 FINDINGS: Lines and Tubes: None Lungs: No focal consolidation. Pleura: No effusion. No pneumothorax. Cardiomediastinal contours: Unremarkable Bones: No acute osseous abnormality. IMPRESSION: No acute cardiopulmonary disease.
[2024-10-03 07:45] VITALS: PULSE 85; RESP 15; TEMP 98.5; O2SAT 97
[2024-10-03 09:00] VITALS: BP 116/76; PULSE 79; RESP 16; O2SAT 97
--- NOTE | 2024-10-03 09:13 | DVH ---
EXAM DESCRIPTION: CT CT AB PEL WO CON-NO ORAL OR IV CLINICAL HISTORY: colitis COMPARISON: None TECHNIQUE: CT abdomen and pelvis without IV contrast was performed. Coronal and sagittal MPR images were generat ed.CTDI/ DLP = 5.07 / 243.04 Dose reduction technique with one or more of the following methods was performed: Automated exposure control, adjustment of the mA and/or kV according to patient size, use of iterative reconstruction te chnique FINDINGS: Lower chest: Clear lung bases. Liver: Homogenous in attenuation. . Biliary: No calcified gallstones. No biliary ductal dilatation. Pancreas: No fat stranding or focal lesion. Spleen: Normal in size.. Adrenal glands: No nodularity. Kidneys: No nephrolithiasis. No hydroureteronephrosis. . Bladder: No bladder wall thickening. Reproductive organs: Normal. Bowel: No bowel wall thickening or dilatation. . Peritoneum: No free fluid. No free air. Vessels: Normal caliber abdominal aorta. Mild to moderate atherosclerotic calcifications.. Lymph nodes: No suspicious lymph nodes. Soft tissues: Unremarkable. . Osseous structures: No acute fracture or subluxation. No suspicious osseous lesions. Degenerative c hanges of the visualized thoracolumbar spine. IMPRESSION: 1. No urolithiasis or hydroureteronephrosis. No acute abnormality within the abdomen or pelvis.
[2024-10-03] MEDS ORDERED: ZOFR4T PO (09:43)
[2024-10-03] MEDS ORDERED: METR-344 PO (09:43)
== END 2024-10-03 10:30 | disposition home or self-care (01) ==
LOC: EDBD 06:20 → EDSEX 06:20 → ER 06:20
DX: K52.9 Noninfective gastroenteritis and colitis, unspecified (principal); F17.210 Nicotine dependence, cigarettes, uncomplicated; F10.90 Alcohol use, unspecified, uncomplicated; J45.909 Unspecified asthma, uncomplicated; Z98.890 Other specified postprocedural states; Z79.82 Long term (current) use of aspirin; Z87.19 Personal history of other diseases of the digestive system; Z79.899 Other long term (current) drug therapy; Y90.9 Presence of alcohol in blood, level not specified
CPT/HCPCS: 36415; 71045; 74176; 80048; 84484; 85025; 96361; 96374; 96375; 99285; J2270; J2405; J7030

== ENCOUNTER 2025-01-16 11:38 | Emergency (ER) | payer OTHER ==
[~2025-01-16] VITALS: Ht 162.6 cm; Wt 53.5 kg
[~2025-01-16 11:38] MED LIST changes: +METR-344 PO; +ZOFR4T PO
--- NOTE | 2025-01-16 12:22 | ED.PDOC ---
Eye-HPI HPI Comments A 64 YEAR OLD FEMALE PRESENTS TO THE ED WITH COMPLAINT OF FOREIGN BODY SENSATION OF LEFT EYE. PATIENT STATES HE BEGAN TO EXPERIENCE A FOREIGN BODY SENSATION IN HIS LEFT EYE YESTERDAY NIGHT. PATIENT REPORTS HE IS NOW EXPERIENCING LEFT EYE IRRITATION. PATIENT DENIES VISION CHANGES, FEVER, CHILLS, SHORTNESS OF BREATH, CHEST PAIN, ABDOMINAL PAIN, NAUSEA, VOMITING, HEADACHE, OR OTHER COMPLAINTS. NO OTHER SYMPTOMS OR MODIFYING FACTORS AT THIS TIME. PATIENT IS ALERT, ORIENTED X 4, AND HAS STEADY GAIT. Chief Complaint: Eye Problem Time Seen by MD: 11:46 Primary Care Provider: UNKNOWN Reviewed Notes: Nurses Notes, Medications, Allergies Allergies: Coded Allergies: NO KNOWN ALLERGIES (Unverified , 07/19/22) Home Meds Active Scripts Tobramycin Sulfate (Tobrex) [address], 2 DROP OP JANIS, #5 ML Prov:BRADEN GLASS 01/16/25 Ondansetron Odt 4MG Tab (ZOFRAN PO) 4 Mg Tb, 4 MG PO DAILY for 5 Days, #5 TAB ODT TAB-DISSOLVE IN MOUTH, THEN SWALLOW Prov:KEREN WILEY MD 10/03/24 Metronidazole (Flagyl) 500 Mg Tab, 1 TAB PO TID for 5 Days, #15 TAB Prov:KEREN WILEY MD 10/03/24 Methylprednisolone (Medrol Dosepak) 4 Mg Marquez, 4 MG PO UD, #21 TAB UAD Prov:PATRICK ARGUETAP 10/02/24 Ibuprofen Micronized (Ibuprofen) 600 Mg Tab, 600 MG PO TIDPRN PRN for 7 Days, #21 TAB 0 Refills Prov:SERGEY DENNIS [employer] 07/29/24 Amoxicillin & Pot Clavulanate (Augmentin) 500 Mg Tab, 1 TAB PO BID for 7 Days, #14 TAB Prov:KEREN WILEY MD 06/23/24 Aspirin (Aspirin Low Dose) 81 Mg Tab, 81 MG PO DAILY for 30 Days, #30 TAB Prov:KELLEE CHACON RESIDENT 12/17/23 Reported Medications Quetiapine Fumerate (Seroquel) 50 Mg Tab, 1 TAB PO HS for 30 Days, #30 12/17/23 Fluoxetine Hcl (Fluoxetine Hcl) 20 Mg Cap, 1 TAB PO DAILY for 30 Days, #30 12/17/23 Famotidine (PEPCID TABLET) 20 Mg Tb, 1 TAB PO BID for 30 Days, #60 12/17/23 Hydrocodone-Acetaminophen (Hydrocodone Bitartrate/AC 10-325 mg) 1 Tab Tab, 1 TAB PO TID for 30 Days, #90 01/29/23 Citalopram Hydrobromide (Citalopram Hydrobromide) 10 Mg Tab, 1 TAB PO DAILY 01/29/23 Timolol Maleate (Ophth) (Timolol Maleate) 0.5 % Nora, EACHEYE 01/29/23 Brimonidine Tartrate (Brimonidine Tartrate) 0.2 % Nora, 1 DROP EACHEYE TID for 90 Days, #30 01/29/23 Latanoprost (LATANOPROST) 0.005 % Nora, 1 DROP EACHEYE HS for 90 Days, #7.5 01/29/23 Brinzolamide-Brimonidine Tartr (SIMBRINZA) 1 Ml Vielka, 1 DROP EACHEYE TID 01/29/23 Ibuprofen Micronized (Ibuprofen) 600 Mg Tab, 2 TAB PO BID 01/29/23 Baclofen (Baclofen) 10 Mg Tab, 1 TAB PO TID 01/29/23 Ferrous Sulfate (Ferrous Sulfate) 325 Mg Tab, 1 TAB PO BID 01/29/23 Mode of Arrival: Ambulatory Timing: Days Duration: Since onset, Days Prehospital treatment: None Quality: Pain, FB sensation Eye Location: Left Lids: Normal Conjunctiva: Normal Cornea: Left eye, Abrasion, Foreign Body Pupils: Normal EOM: Normal Fundus: Normal Slit lamp exam: Left eye, Corneal abrasion, Foreign Body, Flourescein stain:, Positive Anterior chamber: Normal Mouth: Normal ENT Ear Exam: Normal, Normal Nose: Normal Sinuses: Normal Oropharynx: Normal Onset: Spontaneous Throat Exposed to: None History of: Glaucoma, None Modifying factors: Nothing Associated signs and symptoms: None Past Medical History PAST MEDICAL HISTORY: Asthma, Seizures Surgical History: Hernia Repair Family History Family History: Reviewed,noncontributory to illness Social History Smoker: Cigarettes Alcohol: Rarely Drugs: Denies Drug Use Lives In: Home Constitutional: denies: chills, diaphoresis, fatigue, fever, malaise, sweats, weakness, others EENTM: reports: eye pain (LEFT EYE IRRITATION), others (FOREIGN BODY SENSATION OF LEFT EYE); denies: blurred vision, double vision, ear bleeding, ear discharge, ear drainage, ear pain, ear ringing, eye redness, hearing loss, mouth pain, mouth swelling, nasal discharge, nose bleeding, nose congestion, nose pain, photophobia, tearing, throat pain, throat swelling, voice changes Respiratory: denies: cough, hemoptysis, orthopnea, SOB at rest, shortness of breath, SOB with excertion, stridor, wheezing, others Cardiovascular: denies: chest pain, dizzy spells, diaphoresis, Dyspnea on exertion, edema, irregular heart beat, left arm pain, lightheadedness, palpitations, PND, syncope, others Gastrointestinal: denies: abdomen distended, abdominal pain, blood streaked bowels, constipated, diarrhea, dysphagia, difficulty swallowing, hematemesis, melena, nausea, poor appetite, poor fluid intake, rectal bleeding, rectal pain, vomiting, others Genitourinary: denies: burning, dysuria, flank pain, frequency, hematuria, incontinence, penile discharge, penile sore, pain, testicle pain, testicle swelling, urgency, others Neurological: denies: dizziness, fainting, headache, left sided numbness, left sided weakness, numbness, paresthesia, pre-existing deficit, right sided numbness, right sided weakness, seizure, speech problems, tingling, tremors, weakness, others Musculoskeletal: denies: back pain, gout, joint pain, joint swelling, muscle pain, muscle stiffness, neck pain, others Integumetry: denies: bruises, change in color, change in hair/nails, dryness, laceration, lesions, lumps, rash, wounds, others Allergic/Immunocompromised: denies: Difficulty Healing, Frequent Infections, Hives, Itching, others Hematologic/Lymphatic: denies: anemia, blood clots, easy bleeding, easy bruising, swollen glands, others Endocrine: denies: excessive hunger, excessive sweating, excessive thirst, excessive urination, flushing, intolerance to cold, intolerance to heat, unexplained weight gain, unexplained weight loss, others Psychiatric: denies: anxiety, bipolar disorder, depression, hopeless, panic disorder, schizophrenia, sleepless, suicidal, others All Other Systems: Reviewed and Negative Physical Exam General Appearance: No Apparent Distress, Normal HEENT: Cornea (L) (WOOD LAMP EXAM: +FB WITH MILD CORNEA ABRASION. ), Normal ENT Inspection, Pharynx Normal, TMs Normal Neck: Full Range of Motion, Non-Tender, Normal, Normal Inspection Respiratory: Chest Non-Tender, Lungs Clear, No Accessory Muscle Use, No Respiratory Distress, Normal Breath Sounds Cardiovascular: No Edema, No JVD, No Murmur, No Gallop, Normal Peripheral Pulses, Regular Rate/Rhythm Breast Exam: Deferred Gastrointestinal: No Organomegaly, Non Tender, No Pulsatile Mass, Normal Bowel Sounds, Soft Genitalia: Deferred Pelvic: Deferred Rectal: Deferred Extremities: No calf tenderness, Normal capillary refill, Normal inspection, Normal range of motion, Non-tender, No pedal edema Musculoskeletal : Apperance: Normal Neurologic: Alert, vice president supply [employer] II-XII nml as Tested, No Motor Deficits, Normal Affect, Normal Mood, No Sensory Deficits Cerebellar Function: Normal Reflexes: Normal Skin: Dry, Normal Color, Warm Peripheral Pulses: 2+ carotid (R), 2+ carotid (L) Lymphatic: No Adenopathy Was a procedure done? Was a procedure done?: Yes Sedation Sedation?: No Foreign Body Removal Foreign body in: Eye (LEFT EYE) Anesthetic: Other (TETRACAINE) Prep: Prep, Saline, Irrigation Procedure: Identified (+CORNEAL ABRASION OF LEFT EYE VISUALIZED, +FB SEEN OF LEFT EYE SEEN.), Removed (Q-TIP USED TO REMOVE SMALL PIECE OF DUST/DIRT FROM PATIENT'S LEFT EYE.) Informed consent obtained: No Risks/benefits/alt described: Yes EENT DIFF Eye: Conjunctivitis, Allergic, Bacterial, Viral, Corneal Abrasion, Foreign Body-Conjunctiva, Foreign Body-Corneal, Foreign Body-Lid, Hordeolum (stye) Ear: N/A Nose: N/A Mouth: N/A Sore Throat: N/A X-Ray, Labs, Meds, VS Vital Signs Date Time Temp Pulse Resp B/P (MAP) Pulse Ox O2 Delivery O2 Flow Rate FiO2 01/16/25 11:40 97.6 138 16 80/ 62 97.6 X-Ray, Labs, Meds, VS Comment EXTERNAL MEDICAL RECORDS REVIEWED: [NONE] INDEPENDENT HISTORIANS: [NONE] SOCIAL DETERMINANTS OF HEALTH: [NONE] LABS ORDERED: NONE REVIEWED AND INTERPRETED RESULTS: NONE IMAGING ORDERED: NONE TREATMENTS ORDERED: FOREIGN BODY REMOVAL, SEE PROCEDURE SECTION. PROCEDURES PERFORMED: FOREIGN BODY REMOVAL, SEE PROCEDURE SECTION. CRITICAL CARE TIME: NONE I HAVE DISCUSSED THE PATIENT WITH THE ATTENDING PHYSICIAN DR. WILEY AND HE AGREES WITH THE PATIENT'S PLAN OF CARE AND DISPOSITION. BASED ON HISTORY OF PRESENT ILLNESS, AND PHYSICAL EXAM, PATIENT WILL BE DISCHARGED HOME. DISCUSSED PLAN FOR DISCHARGE HOME WITH RX [TOBREX EYEDROPS]. MEDICATION WARNINGS GIVEN. SHARED DECISION MAKING: PATIENT INSTRUCTED TO FOLLOW UP WITH PRIMARY CARE PROVIDER IN 1-2 DAYS FOR RE-EVALUATION OF SYMPTOMS. PATIENT VERBALIZES UNDERSTANDING TO RETURN TO ED FOR NEW OR WORSENING SYMPTOMS OR IF FOLLOW UP WITH PCP CANNOT BE OBTAINED. PATIENT FEELS COMFORTABLE GOING HOME AT THIS TIME. ALL QUESTIONS ADDRESSED AT TIME OF DISCHARGE. Time of 1ST Reevaluation: 13:00 Reevaluation 1ST: Improved Patient Education/Counseling: Diagnosis, Treatment, Need For Follow Up Family Education/Counseling: Diagnosis, Treatment, Need For Follow Up Medical Screening: No EMC Exist At This Time SEPSIS Sepsis Screen Date sepsis recognized/suspect: Jan 16, 2025 Time Sepsis recognized/suspect: 1142 Recent Procedure: No On Antibiotic Therapy: No Respiratory Rate >20: No Heart Rate >90: No Temp<36 C (96.8 F) or >38.3 C: No SBP <90 or MAP <65 mmHG: No New Acute Mental Status Change: No Is the patient on CPAP, BIPAP,: No Vital Signs Date Time Temp Pulse Resp B/P (MAP) Pulse Ox O2 Delivery O2 Flow Rate FiO2 01/16/25 11:40 97.6 138 16 80/ 62 97.6 Departure 1 Departure Time of Disposition: 13:00 Impression: Primary Impression: History of retained foreign body fully removed Additional Impression: Corneal abrasion, left Qualified Codes: S05.02XA - Injury of conjunctiva and corneal abrasion without foreign body, left eye, initial encounter Disposition: HOME / SELF CARE / HOMELESS Condition: Stable Additional Instructions: FOLLOW-UP WITH PCP IN 1 TO 2 DAYS. TAKE MEDICATIONS PRESCRIBED. RETURN TO ED FOR ANY NEW OR WORSENING SYMPTOMS. e-Prescriptions Tobramycin Sulfate (Tobrex) 1 Drop 2 DROP TATE, #5 ML Prov: BRADEN GLASS 01/16/25 Discharged With: Self Critical Care Note Critical Care Time?: No Stability Stability form required: No I personally scribed for BRADEN GLASS ([email or web address]) on 01/16/25 at 12:22. Electronically submitted by Herbie Brooks ([email or web address]). BRADEN GLASS Jan 16, 2025 12:22
[2025-01-16] MEDS ORDERED: TOB03OS OP (12:26)
[2025-01-16 12:54] VITALS: BP 138/80; PULSE 62; RESP 16; TEMP 97.6; O2SAT 98
== END 2025-01-16 12:54 | disposition home or self-care (01) ==
LOC: ER 11:38
DX: S05.02XA Injury of conjunctiva and corneal abrasion without foreign body, left eye, initial encounter (principal); F17.210 Nicotine dependence, cigarettes, uncomplicated; J45.909 Unspecified asthma, uncomplicated; Z79.82 Long term (current) use of aspirin; Z79.899 Other long term (current) drug therapy; Z98.890 Other specified postprocedural states; W44.8XXA Other foreign body entering into or through a natural orifice, initial encounter; Y93.89 Activity, other specified; Y92.89 Other specified places as the place of occurrence of the external cause; Y99.8 Other external cause status
CPT/HCPCS: 65222